=== PATIENT | female | born 2000 | race Caucasian/White ===

== ENCOUNTER 2021-04-04 17:01 | Emergency (ER) | payer OTHER, SELFPAY ==
[2021-04-04 17:09] VITALS: BP 99/49; PULSE 76; RESP 18; TEMP 36.8; O2SAT 98; BMI 45.7
--- NOTE | 2021-04-04 17:50 | ED.SKABFB ---
HPI - Skin/Abscess/Foreign Bdy General Chief complaint: Skin/Abscess/Foreign Body Stated complaint: cyst Time Seen by Provider: 04/04/21 17:30 History of Present Illness HPI narrative: Patient complains of right abdominal abscess, redness and painful swelling for several days similar to prior abscesses, no fever no chills no vomiting no other abdominal pain Related Data Previous Rx's Medication Instructions Recorded doxycycline monohydrate 100 mg PO BID #14 tab 04/04/21 lorazepam [Ativan] 1 mg PO BID PRN #2 tab 04/04/21 Allergies Allergy/AdvReac Type Severity Reaction Status Date / Time No Known Allergies Allergy Unverified 08/11/20 19:01 [No Known Allergies*] Review of Systems Review of Systems: Positive for redness to skin of abdomen in a place where she has had previous abscess Negative no fever no chills no dizziness no weakness no chest pain or shortness of breath no abdominal pain no nausea or vomiting no other rash Yes all other systems are reviewed and are negative PMFSH Past Medical History Source: nursing notes reviewed Medical History (Updated 04/05/21 @ 00:01 by Wes Steiner) Asthma Tourette syndrome Social History Social History Advance Directives: No Advance Directives Information Provided: No Patient : No Physical Exam Vital Signs: Vital Signs: Last Vital Signs Temp 98.2 F 04/04/21 17:09 Pulse 76 04/04/21 17:09 Resp 18 04/04/21 17:09 BP 99/49 L 04/04/21 17:09 Pulse Ox 98 04/04/21 17:09 Body Mass Index 45.7 General appearance no acute distress Head is normocephalic atraumatic Neck is supple Respiratory no distress Abdomen there is a small area of the right abdomen at level of umbilicus that has some mild redness and induration no obvious abscess no obvious fluctuance no discharge, there is no other tenderness in the abdomen except a small superficial mildly tender area of skin, there is no deep tenderness rebound or guarding Extremities full range of motion x4 Neuro no gross motor or sensory deficit Course Course Course Narrative: Patient with abdominal small abscess was advised that we could incise it today and make sure any pus in there got out, she felt too anxious to undergo the procedure despite being given an Ativan and refused the procedure I said that was fine as she had no fever no chills there was no significant surrounding cellulitis, and it ooze not even certain that there is a drainable fluid collection as it was indurated but not obviously fluctuant She is advised that she can return here any time, I gave her a prescription for Ativan and advised that she take it before arrival in the emergency room so she does need the procedure she could tolerate it and she understood to return if it gets more swollen or worse and is discharged with no procedure today Discharge Plan Discharge Clinical Impression: Abscess of skin or subcutaneous tissue Patient Disposition: Home, Self-Care Additional Instructions: You did not want to undergo the incision and drainage of the abscess now so we did not do it Use warm soaks, take the antibiotic as prescribed Return here in 2 days for recheck Usually an abscess will just get bigger and get more uncomfortable, so if that is happening I wrote you for 2 Ativan tablets and you can take 1 of the tablets half an hour before you come in to this department and you will have the other to take if needed in the waiting room if 1 mg does not work You can come in here any time when you are ready for us to drain the abscess It usually gets very busy year in the afternoon to the nighttime so if possible come in the morning Prescriptions: New doxycycline monohydrate 100 mg tablet 100 mg PO BID Qty: 14 RF: 0 lorazepam [Ativan] 1 mg tablet 1 mg PO BID PRN (Reason: anxiety) Qty: 2 RF: 0 Interventions: ED Discharge Assessment Last Done: 04/04/21 18:31 Discharge Date/Time: 04/04/21 18:31
[2021-04-04] MEDS: LORazepam 1 MG TABLET PO (17:54)
[2021-04-04] MEDS: Lidocaine HCl 1 % MPF 5 ML VIAL SUBCUT ×2 (17:54)
== END 2021-04-04 18:31 | disposition home or self-care (01) ==
PROVIDERS: Emergency Provider Internal Medicine; PCP Pediatrics
DX: L02.211 Cutaneous abscess of abdominal wall (principal)
CPT/HCPCS: 96372; 99284

== ENCOUNTER 2022-02-26 14:45 | Emergency (ER) | payer OTHER, SELFPAY ==
--- NOTE | ~2022-02-26 | XR_ITS ---
EXAMINATION: XR CHEST CLINICAL INFORMATION: Cough. Chest pain. COMPARISON: None TECHNIQUE: Frontal view of the chest was obtained. FINDINGS: The lungs are well expanded. There is no focal consolidation, edema, or effusion. No pneumothorax. The cardiomediastinal silhouette is within normal limits. No acute osseous abnormality. XR/XR chest 1V IMPRESSION: Clear lungs.
--- NOTE | 2022-02-26 15:12 | ECG_ITS ---
Test Reason : weakness/sob Blood Pressure : / mmHG Vent. Rate : 130 BPM Atrial Rate : 130 BPM P-R Int : 134 ms QRS Dur : 084 ms QT Int : 292 ms P-R-T Axes : 060 060 027 degrees QTc Int : 429 ms Sinus tachycardia Otherwise normal ECG No previous ECGs available Referred By: Generic ED Physician Electronically Signed By:DARREL GOINS MD
[2022-02-26 16:02] VITALS: BP 118/73; PULSE 128; RESP 22; TEMP 38.7; O2SAT 97; BMI 46.0
[2022-02-26] MEDS: Acetaminophen 325 MG TABLET 650 MG PO (16:09)
--- NOTE | 2022-02-26 18:03 | ED.CHESTPAIN ---
HPI - Chest Pain General Chief Complaint: Chest Pain Stated Complaint: SOB/Chest pain Time Seen by Provider: 02/26/22 17:28 Source: patient Mode of arrival: ambulatory Limitations: no limitations History of Present Illness HPI narrative: Patient is a 21-year-old female with a past medical history of asthma. She presents emergency department for evaluation cough, reproducible chest pain, body, generalized weakness with symptom onset yesterday. She reports that a few days ago she was exposed to somebody who tested positive for influenza. She has been taking her Flovent inhaler daily, ran out of albuterol MDI, and states that yesterday the tubing for her nebulizer machine broke, therefore she has been unable to use it. T-max 102.5 degrees, improves with Tylenol. Chest pain is diffuse reproducible to cough and deep breathing. Related Data Previous Rx's Medication Instructions Recorded doxycycline monohydrate 100 mg 100 mg PO BID #14 tab 04/04/21 tablet lorazepam 1 mg tablet (Ativan) 1 mg PO BID PRN #2 tab 04/04/21 albuterol sulfate 2.5 mg (3 mL) INHALATION Q4-6H PRN 02/26/22 #90 ml albuterol sulfate 90 mcg/actuation 1 inh INHALATION Q4-6H PRN #1 ea 02/26/22 breath activated powder inhaler oseltamivir 75 mg capsule (Tamiflu) 75 mg PO BID 5 Days #10 cap 02/26/22 prednisone 20 mg tablet 40 mg PO DAILY 5 Days #10 tab 02/26/22 Allergies Allergy/AdvReac Type Severity Reaction Status Date / Time rhodes Allergy Hives Verified 02/26/22 16:05 grapefruit Allergy Hives Verified 02/26/22 16:05 latex Allergy Hives Verified 02/26/22 16:05 Penicillins Allergy Hives Verified 02/26/22 16:06 Review of Systems Review of Systems: Constitutional : Positive Fever, No Chills ENT/Mouth : No Hoarseness, No muffled voice, No sore throat, No Rhinorrhea Eyes: No Redness, No Discharge, No Vision Changes Cardiovascular : Positive Chest Pain, positive SOB, positive Dyspnea on Exertion, No Edema Respiratory : positive Cough, No Sputum, No Wheezing, Gastrointestinal : No Nausea, No Vomiting, No Diarrhea, No abdominal Pain Genitourinary : No Dysuria, No Hematuria Musculoskeletal : No joint pain, No Myalgias Skin : No rash Neuro : No Weakness, No Numbness, No Headache Psych : No anxiety, depression Heme/Lymph: No Bruising, No Bleeding Yes all other systems are reviewed and are negative [facility] Past Medical History Attestation statement: The following information was validated with the patient. Source: old records reviewed Medical History Asthma Tourette syndrome Social History Social History Advance Directives: No Advance Directives Information Provided: No Patient : No Physical Exam Vital Signs: Vital Signs: Last Vital Signs Temp 98.7 F 02/26/22 18:26 Pulse 110 H 02/26/22 18:04 Resp 18 02/26/22 18:04 BP 125/83 02/26/22 18:04 Pulse Ox 96 02/26/22 18:04 BMI result Body Mass Index 46.0 Vital signs have been reviewed and appeared to be correct. Blood pressure normal.? Tachycardia.? Mild tachypnea. Febrile.? Oxygen saturation normal. Appearance: Alert.?Oriented to person, place and time. No acute distress.?Normal affect. Eyes: Pupils equal, round and reactive to light.? ENT: Pharynx normal.?? Neck: Normal inspection.? Neck supple.?? CVS: Heart sounds normal. Tachycardia.? Pulses normal.?? Respiratory: No respiratory distress.? Lung sounds tight bilaterally, no wheezing.?? Abdomen: Soft and non-tender. Normoactive bowel sounds. ? Skin: Skin warm and dry.? Normal skin color.? Normal skin turgor.?? Extremities: No lower extremity edema.? No calf ttp? Neuro: Moves all extremities spontaneously. Sensation intact bilaterally. CN II-XII intact. No focal neuro deficits. Ambulates with normal steady gait. Course Course Course Narrative: Patient is a 21-year-old female being evaluated for fever, shortness of breath, chest pain, cough after recent contact with influenza positive person. Patient initially meeting SIRS criteria; tachycardic with mild tachypnea and febrile, though I suspect that this is secondary to viral infection given recent exposure, do not suspect bacterial infection/sepsis at this time. After Tylenol heart rate improved to 110, afebrile at 98.7, no tachypnea. COVID-19 testing is negative, influenza A testing is positive. Wells score for PE 1.5, low risk for PE, only risk being obese. Chest x-ray is normal. Not consistent with pneumonia, AAA, aortic dissection, myocardial infarction as no risk factors. Symptoms are most consistent with influenza A viral infection, likely causing exacerbation of her asthma. Reports improvement with her symptoms after receiving oral prednisone and albuterol inhaler. She is overall appearing, speaking in clear full sentences, maintaining airway, managing secretions, no significant work of breathing. Discussed plan of care for discharge home, patient is agreeable, discussed reasons to return back to the emergency department, provide new prescription for prednisone, Tamiflu, albuterol inhaler and nebulizer solution. MDM - Chest Pain Medical Records Data Attestation: I reviewed the patient's medical records. Lab Data Attestation: I reviewed the patient's lab results. Labs: Lab Results 02/26/22 02/26/22 Range/Units 18:07 18:07 COVID-19 ([facility]) Negative (Negative) COVID-19 Clin Com See Note Influenza Type A ([facility]) Positive A (Negative) Influenza Type B ([facility]) Negative (Negative) Influenza A & B Note See Note Imaging Data Chest x-ray: Radiologist's impression: FINDINGS: The lungs are well expanded. There is no focal consolidation, edema, or effusion. No pneumothorax. The cardiomediastinal silhouette is within normal limits. No acute osseous abnormality. XR/XR chest 1V IMPRESSION: Clear lungs. ECG Data ECG #1: Attestation: I personally reviewed and interpreted this ECG as follows: ECG interpretation date: 02/26/22 ECG interpretation time: 18:00 Prior ECG tracings: not available for review Interpretation: Rate: 130 Rhythm:? Sinus tachycardia [place]:? Normal Normal P waves.? Normal SAM.?? Normal QRS complex.?? ST T wave :? No ST elevation, no ST depression, no T-wave inversion qTC: 429 prior studies:? None available for review The study has been interpreted contemporaneously by me. Discharge Plan Discharge Clinical Impression: Asthma exacerbation, Influenza A Patient Disposition: Home, Self-Care Instructions: Asthma (ED), Influenza (ED) Additional Instructions: Testing for flu is positive, please take Tamiflu twice daily for 5 days and prednisone once daily starting tomorrow for 5 days. Albuterol as needed for shortness of breath, cough, wheezing. Please return to emergency department any new or worsening symptoms or concerns. Please contact your primary care provider to schedule a follow-up visit within 5 days. Prescriptions: New prednisone 20 mg tablet 40 mg PO DAILY 5 Days Qty: 10 0RF albuterol sulfate 90 mcg/actuation aerosol powdr breath activated 1 inh inhalation Q4-6H PRN (Reason: shortness of breath or wheezing) Qty: 1 0RF albuterol sulfate 2.5 mg /3 mL (0.083 %) solution for nebulization 2.5 mg inhalation Q4-6H PRN (Reason: shortness of breath or wheezing) Qty: 90 0RF oseltamivir [Tamiflu] 75 mg capsule 75 mg PO BID 5 Days Qty: 10 0RF No Action doxycycline monohydrate 100 mg tablet 100 mg PO BID Qty: 14 0RF lorazepam [Ativan] 1 mg tablet 1 mg PO BID PRN (Reason: anxiety) Qty: 2 0RF Rx Instructions: Take 1 tablet an hour before coming to the hospital for your procedure to reduce anxiety
[2022-02-26 18:04] VITALS: BP 125/83; PULSE 110; RESP 18; O2SAT 96
[2022-02-26 18:26] VITALS: TEMP 37.1
[2022-02-26 18:28] LABS: COVID-19 Test Negative (Negative); IDNOW Serial# 16C4AD1C
[2022-02-26] MEDS: predniSONE 20 MG TABLET 60 MG PO (18:29)
[2022-02-26 18:35] LABS: Influenza A Positive (Negative); Influenza B2 Negative (Negative)
[2022-02-26] MEDS: Albuterol Sulfate 90 MCG 8 GM INHALER 4 PUFF INHALE (18:49)
--- NOTE | 2022-02-26 18:54 | PC.NURSE ---
albuterol inhaler done as ordered . educated patient on proper administration , take slow deep breath while doser is pushed down . completed 4 puffs . lung quality improved .
== END 2022-02-26 19:06 | disposition home or self-care (01) ==
PROVIDERS: Nurse Practitioner Family; Emergency Provider Emergency Medicine; PCP Pediatrics
DX: J11.1 Influenza due to unidentified influenza virus with other respiratory manifestations (principal); Z20.822 Contact with and (suspected) exposure to COVID-19; R06.02 Shortness of breath; R50.9 Fever, unspecified
CPT/HCPCS: 71045; 87502; 87635; 93005; 99284

== ENCOUNTER 2022-12-19 09:20 | Outpatient (RCR) | payer OTHER, SELFPAY | END 2022-12-19 23:59 | disposition home or self-care (01) | LOC: HO.PHPA 09:20 | PROVIDERS: Visit Provider Psychiatry & Neurology Psychiatry | DX: F31.9 Bipolar disorder, unspecified (principal) ==

== ENCOUNTER 2022-12-28 19:58 | Emergency (ER) | payer OTHER, SELFPAY ==
--- NOTE | ~2022-12-28 | XR_ITS ---
EXAMINATION: XR CHEST CLINICAL INFORMATION: Cough, shortness of breath COMPARISON: Chest x-ray on 02/26/2022 TECHNIQUE: 2 views of the chest were obtained. FINDINGS: No significant abnormality is noted involving the heart, lungs, mediastinum, bony thorax or soft tissues. XR/XR chest 2V IMPRESSION: Unremarkable examination.
[2022-12-28 19:59] VITALS: BP 122/70; PULSE 95; RESP 20; TEMP 36.2; O2SAT 98; BMI 44.4
--- NOTE | 2022-12-28 20:01 | ED.GENADULT ---
HPI - General Adult General Chief complaint: Asthma <AMANDA Sorensen - Last Filed: 12/28/22 20:02> Stated complaint: Asthma/Chest pain <AMANDA Sorensen - Last Filed: 12/28/22 20:02> Time Seen by Provider: 12/28/22 20:46 <AMANDA Sorensen - Last Filed: 12/28/22 20:02> Source: patient <Zoey Valerio MD - Last Filed: 12/28/22 21:42> Mode of arrival: ambulatory <Zoey Valerio MD - Last Filed: 12/28/22 21:42> History of Present Illness HPI narrative: 22-year-old female with history of asthma states over the past couple of days she has had increasing shortness of breath and does endorse that she smokes marijuana within the past 24 hours. She states her at home breathing treatments have not been working and that she has run out of medication. She denies any fevers or chills. <Zoey Valerio MD - Last Filed: 12/28/22 21:42> Related Data Home medications: Previous Rx's Medication Instructions Recorded doxycycline monohydrate 100 mg 100 mg PO BID #14 tabs 04/04/21 tablet lorazepam 1 mg tablet (Ativan) 1 mg PO BID PRN anxiety #2 tabs 04/04/21 albuterol sulfate 2.5 mg/3 mL 2.5 mg (3 mL) inhalation Q4-6H PRN 02/26/22 (0.083 %) solution for nebulization shortness of breath or wheezing #90 mL albuterol sulfate 90 mcg/actuation 1 inh inhalation Q4-6H PRN 02/26/22 breath activated powder inhaler shortness of breath or wheezing #1 ea oseltamivir 75 mg capsule (Tamiflu) 75 mg PO BID 5 days #10 caps 02/26/22 prednisone 20 mg tablet 40 mg PO DAILY 5 days #10 tabs 02/26/22 albuterol sulfate 90 mcg/actuation 2 puff inhalation Q4-6H PRN 12/28/22 aerosol inhaler (Ventolin HFA) shortness of breath or wheezing #8.5 grams prednisone 50 mg tablet 50 mg PO DAILY 4 days #4 tabs 12/28/22 <AMANDA Sorensen - Last Filed: 12/28/22 20:02> Allergies/adverse reactions: Allergies Allergy/AdvReac Type Severity Reaction Status Date / Time rhodes Allergy Hives Verified 12/28/22 20:03 grapefruit Allergy Hives Verified 12/28/22 20:03 latex Allergy Hives Verified 12/28/22 20:03 Penicillins Allergy Hives Verified 12/28/22 20:03 <AMANDA Sorensen - Last Filed: 12/28/22 20:02> Review of Systems Review of Systems: Pertinent positives and negatives as stated in HPI <Zoey Valerio MD - Last Filed: 12/28/22 21:42> PMFSH Past Medical History Source: nursing notes reviewed <Zoey Valerio MD - Last Filed: 12/28/22 21:42> Medical History: Medical History Asthma Tourette syndrome <AMANDA Sorensen - Last Filed: 12/28/22 20:02> Social History Social History: Social History Advance Directives: No Advance Directives Information Provided: No <AMANDA Sorensen - Last Filed: 12/28/22 20:02> Physical Exam ED Vital Signs: Vital Signs - 24 hr 12/28/22 19:59 12/28/22 21:16 Temperature 97.1 F Pulse Rate 95 88 Respiratory Rate 20 16 Blood Pressure 122/70 Pulse Oximetry 98 Oxygen Delivery Method Room Air BMI result Body Mass Index 44.4 <AMANDA Sorensen - Last Filed: 12/28/22 20:02> Vital Signs - 24 hr 12/28/22 19:59 12/28/22 21:16 Temperature 97.1 F Pulse Rate 95 88 Respiratory Rate 20 16 Blood Pressure 122/70 Pulse Oximetry 98 Oxygen Delivery Method Room Air BMI result Body Mass Index 44.4 VITAL SIGNS: Reviewed. GENERAL: Well developed, well nourished, in no acute distress. HEAD: Normocephalic/atraumatic EYES: PERRLA, EOMI LUNGS: Good inspiratory effort with expiratory wheeze minimally decreased bilaterally, mild tachypnea. SpO2<98> CARDIOVASCULAR: Regular rate and rhythm without noted murmurs ABDOMEN: Soft, non-tender, non-distended with bowel sounds. MUSCULOSKELETAL: No tenderness, deformities, or effusions noted on gross inspection. EXTREMITIES: No cyanosis, clubbing or edema. SKIN: Inspection of the skin reveals no rashes NEUROLOGIC: Alert and oriented x 4. Strength and sensation to light touch were grossly intact x 4. <Zoey Valerio MD - Last Filed: 12/28/22 21:42> Course Course Course Narrative: RME performed by Myriam Rodriguez PA-C. Patient is a 22 year old female presenting to the emergency department with an acute asthma exacerbation. Patient states that she has been using her nebulizer at home and it is no longer working. Patient states that she does not know the last time she was on steroids. Labs, CXR ordered. Patient placed back in the waiting room pending room availability and results. <AMANDA Sorensen - Last Filed: 12/28/22 20:02> Medications Administered Discontinued Medications Generic Name Dose Route Start Last Admin Trade Name Freq PRN Reason Stop Dose Admin Albuterol Sulfate 10 mg 12/28/22 21:00 12/28/22 21:14 Albuterol Sulfate (0.083%) 2.5 Mg/3 Ml Vial.Neb INHALE 12/28/22 21:01 10 mg ONCE ONE Administration <AMANDA Sorensen - Last Filed: 12/28/22 20:02> Medications Administered Discontinued Medications Generic Name Dose Route Start Last Admin Trade Name Freq PRN Reason Stop Dose Admin Albuterol Sulfate 10 mg 12/28/22 21:00 12/28/22 21:14 Albuterol Sulfate (0.083%) 2.5 Mg/3 Ml Vial.Neb INHALE 12/28/22 21:01 10 mg ONCE ONE Administration <Zoey Valerio MD - Last Filed: 12/28/22 21:42> Medical Decision Making Medical Decision Making MDM Narrative: 22-year-old female, afebrile and not tachycardic, neither she hypoxic, most consistent with mild asthma exacerbation will receive albuterol, 50 mg of prednisone, chest x-ray and re-evaluation. I reviewed all investigations and mitral petition is that patient has mild asthma exacerbation and the leukocytosis that is noted is likely secondary to stress/reactive response as patient is afebrile and chest x-ray is negative for any pneumonia. Patient given diagnosis and results and is feeling much better and will be discharged home in stable condition. <Zoey Valerio MD - Last Filed: 12/28/22 21:42> Differential Diagnosis Differential Diagnoses: The differential diagnosis associated with the presentation includes <Zoey Valerio MD - Last Filed: 12/28/22 21:42> Please see the discussion above <Zoey Valerio MD - Last Filed: 12/28/22 21:42> Lab Data MDM Lab Attestation statement: I reviewed the patient's lab results. <Zoey Valerio MD - Last Filed: 12/28/22 21:42> Please see the discussion above <Zoey Valerio MD - Last Filed: 12/28/22 21:42> Result Diagrams: 12/28/22 20:40 12/28/22 20:40 <AMANDA Sorensen - Last Filed: 12/28/22 20:02> Labs: Lab Results 12/28/22 12/28/22 Range/Units 20:40 20:40 WBC 15.8 H (4.8-10.8) X10*3/uL RBC 5.18 (4.20-5.50) X10*6/uL Hgb 13.9 (12.0-16.0) g/dl Hct 42.7 (37.0-47.0) % MCV 82.4 (80.0-98.0) fL MCH 26.8 L (27.0-33.0) pg MCHC 32.6 (31.0-35.0) g/dl RDW 15.2 (11.0-16.0) % Plt Count 281 (160-400) X10*3/uL MPV 10.9 (9.4-12.3) fL Immature Gran % (Auto) 0.4 (0.0-0.4) % Neut % (Auto) 73.1 H (45-73) % Lymph % (Auto) 15.5 L (20-40) % [place] % (Auto) 5.5 (2-11) % Eos % (Auto) 5.1 H (0-4) % Baso % (Auto) 0.4 (0-2) % Lymph # (Auto) 2.5 (1.2-4.9) X10*3/uL [place] # (Auto) 0.9 (0.1-1.2) X10*3/uL Eos # (Auto) 0.8 H (0.0-0.4) X10*3/uL Baso # (Auto) 0.1 (0.0-0.2) X10*3/uL Abs Immat Gran (auto) 0.07 H (0.00-0.03) X10*3/uL Absolute Neuts (auto) 11.6 H (2.0-8.3) x10*3/uL Absolute Nucleated RBC 0.000 (0.0-0.012) X10*3/uL Nucleated RBC % (auto) 0.0 (0.0-0.2) /100WBC Sodium 139 (135-145) mmol/L Potassium 4.2 (3.3-5.1) mmol/L Chloride 104 (96-108) mmol/L Carbon Dioxide 24 (22-29) mmol/L Anion Gap 15 (12-20) BUN 9 (9-16) mg/dL Creatinine 0.92 (0.5-1.4) mg/dL Estim Creat Clear Calc 108.9 Estimated GFR > 60 Random Glucose 119 H (60-115) mg/dL Calcium 9.2 (8.4-10.2) mg/dL Magnesium 2.0 (1.6-2.6) mg/dL Total Bilirubin 0.4 (0.0-1.0) mg/dL AST 17 (5-31) U/L ALT 13 (0-31) U/L Alkaline Phosphatase 86 (39-117) U/L Total Protein 7.6 (6.5-8.0) g/dL Albumin 3.9 (3.5-5.0) g/dL <AMANDA Sorensen - Last Filed: 12/28/22 20:02> Lab Results 12/28/22 12/28/22 Range/Units 20:40 20:40 WBC 15.8 H (4.8-10.8) X10*3/uL RBC 5.18 (4.20-5.50) X10*6/uL Hgb 13.9 (12.0-16.0) g/dl Hct 42.7 (37.0-47.0) % MCV 82.4 (80.0-98.0) fL MCH 26.8 L (27.0-33.0) pg MCHC 32.6 (31.0-35.0) g/dl RDW 15.2 (11.0-16.0) % Plt Count 281 (160-400) X10*3/uL MPV 10.9 (9.4-12.3) fL Immature Gran % (Auto) 0.4 (0.0-0.4) % Neut % (Auto) 73.1 H (45-73) % Lymph % (Auto) 15.5 L (20-40) % [place] % (Auto) 5.5 (2-11) % Eos % (Auto) 5.1 H (0-4) % Baso % (Auto) 0.4 (0-2) % Lymph # (Auto) 2.5 (1.2-4.9) X10*3/uL [place] # (Auto) 0.9 (0.1-1.2) X10*3/uL Eos # (Auto) 0.8 H (0.0-0.4) X10*3/uL Baso # (Auto) 0.1 (0.0-0.2) X10*3/uL Abs Immat Gran (auto) 0.07 H (0.00-0.03) X10*3/uL Absolute Neuts (auto) 11.6 H (2.0-8.3) x10*3/uL Absolute Nucleated RBC 0.000 (0.0-0.012) X10*3/uL Nucleated RBC % (auto) 0.0 (0.0-0.2) /100WBC Sodium 139 (135-145) mmol/L Potassium 4.2 (3.3-5.1) mmol/L Chloride 104 (96-108) mmol/L Carbon Dioxide 24 (22-29) mmol/L Anion Gap 15 (12-20) BUN 9 (9-16) mg/dL Creatinine 0.92 (0.5-1.4) mg/dL Estim Creat Clear Calc 108.9 Estimated GFR > 60 Random Glucose 119 H (60-115) mg/dL Calcium 9.2 (8.4-10.2) mg/dL Magnesium 2.0 (1.6-2.6) mg/dL Total Bilirubin 0.4 (0.0-1.0) mg/dL AST 17 (5-31) U/L ALT 13 (0-31) U/L Alkaline Phosphatase 86 (39-117) U/L Total Protein 7.6 (6.5-8.0) g/dL Albumin 3.9 (3.5-5.0) g/dL <Zoey Valerio MD - Last Filed: 12/28/22 21:42> Independent Interpretation I performed an independent interpretation of an: EKG <Zoey Valerio MD - Last Filed: 12/28/22 21:42> Interpretation: Normal sinus rhythm, HR-92, no STEMI, [place]/QRS/QTC is within normal limits. <Zoey Valerio MD - Last Filed: 12/28/22 21:42> Radiology Impression Radiologist Impression: My interpretation is in agreement with radiology's impression of the imaging study. <Zoey Valerio MD - Last Filed: 12/28/22 21:42> Discharge Plan Discharge Clinical Impression: Asthma with acute exacerbation <AMANDA Sorensen - Last Filed: 12/28/22 20:02> Patient Disposition: Home, Self-Care <AMANDA Sorensen - Last Filed: 12/28/22 20:02> Instructions: Asthma (ED) <AMANDA Sorensen - Last Filed: 12/28/22 20:02> Additional Instructions: 1. Resume all home medications as prescribed. <AMANDA Sorensen - Last Filed: 12/28/22 20:02> Prescriptions: New albuterol sulfate [Ventolin HFA] 90 mcg/actuation HFA aerosol inhaler 2 puff inhalation Q4-6H PRN (Reason: shortness of breath or wheezing) Qty: 8.5 1RF prednisone 50 mg tablet 50 mg PO DAILY 4 Days Qty: 4 0RF No Action doxycycline monohydrate 100 mg tablet 100 mg PO BID Qty: 14 0RF lorazepam [Ativan] 1 mg tablet 1 mg PO BID PRN (Reason: anxiety) Qty: 2 0RF Rx Instructions: Take 1 tablet an hour before coming to the hospital for your procedure to reduce anxiety prednisone 20 mg tablet 40 mg PO DAILY 5 Days Qty: 10 0RF albuterol sulfate 90 mcg/actuation aerosol powdr breath activated 1 inh inhalation Q4-6H PRN (Reason: shortness of breath or wheezing) Qty: 1 0RF albuterol sulfate 2.5 mg /3 mL (0.083 %) solution for nebulization 2.5 mg inhalation Q4-6H PRN (Reason: shortness of breath or wheezing) Qty: 90 0RF oseltamivir [Tamiflu] 75 mg capsule 75 mg PO BID 5 Days Qty: 10 0RF <AMANDA Sorensen - Last Filed: 12/28/22 20:02>
--- NOTE | 2022-12-28 20:02 | ECG_ITS ---
Test Reason : SOB/CP Blood Pressure : / mmHG Vent. Rate : 092 BPM Atrial Rate : 092 BPM P-R Int : 146 ms QRS Dur : 086 ms QT Int : 328 ms P-R-T Axes : 046 059 032 degrees QTc Int : 405 ms Normal sinus rhythm Normal ECG When compared with ECG of 26-FEB-2022 15:22, No significant change was found Referred By: Myriam Rodriguez Electronically Signed By:King Correia
[2022-12-28 20:43] LABS: MANUAL DIFF FLAG NO
[2022-12-28 20:45] LABS: Basophils Absolute Auto 0.1 X10*3/uL (0.0-0.2); Basophils Percent Auto 0.4 % (0-2); Eosinophils Absolute Auto 0.8 X10*3/uL (0.0-0.4); Eosinophils Percent Auto 5.1 % (0-4); Hematocrit 42.7 % (37.0-47.0); Hemoglobin 13.9 g/dl (12.0-16.0); Imm Gran Abs Auto 0.07 X10*3/uL (0.00-0.03); Imm Gran Pct Auto 0.4 % (0.0-0.4); Lymphocytes Absolute Auto 2.5 X10*3/uL (1.2-4.9); Lymphocytes Percent Auto 15.5 % (20-40); Mean Corpuscular HGB Conc 32.6 g/dl (31.0-35.0); Mean Corpuscular Hemoglobin 26.8 pg (27.0-33.0); Mean Corpuscular Volume 82.4 fL (80.0-98.0); Mean Platelet Volume 10.9 fL (9.4-12.3); Monocytes Absolute Auto 0.9 X10*3/uL (0.1-1.2); Monocytes Percent Auto 5.5 % (2-11); Neutrophils Absolute Auto 11.6 x10*3/uL (2.0-8.3); Neutrophils Percent Auto 73.1 % (45-73); Platelet Count 281 X10*3/uL (160-400); Red Blood Count 5.18 X10*6/uL (4.20-5.50); Red Cell Distribution Width 15.2 % (11.0-16.0); White Blood Count 15.8 X10*3/uL (4.8-10.8)
[2022-12-28 21:02] LABS: Alanine Aminotransferase 13 U/L (0-31); Albumin Level 3.9 g/dL (3.5-5.0); Alkaline Phosphatase 86 U/L (39-117); Anion Gap 15 (12-20); Aspartate Amino Transferase 17 U/L (5-31); Bilirubin Total 0.4 mg/dL (0.0-1.0); Blood Urea Nitrogen 9 mg/dL (9-16); Calcium 9.2 mg/dL (8.4-10.2); Carbon Dioxide 24 mmol/L (22-29); Chloride 104 mmol/L (96-108); Creatinine Clr Calc Pharmacy 108.9; Estimated Glomerular Filt Rate > 60; Glucose Random 119 mg/dL (60-115); Potassium 4.2 mmol/L (3.3-5.1); Sodium 139 mmol/L (135-145); Total Protein 7.6 g/dL (6.5-8.0)
[2022-12-28] MEDS: Albuterol Sulfate (0.083%) 2.5 MG/3 ML VIAL.NEB 10 MG INHALE (21:14)
[2022-12-28 21:16] VITALS: PULSE 88; RESP 16; O2SAT 98
[2022-12-28] MEDS: Albuterol Sulfate 90 MCG 8 GM INHALER 4 PUFF INHALE (22:01)
[2022-12-28] MEDS: predniSONE 10 MG TABLET 50 MG PO (22:02)
--- NOTE | 2022-12-28 22:03 | PC.NURSE ---
pt reporting improvement in breathing after treatments, medicated per provider order.
== END 2022-12-28 22:05 | disposition home or self-care (01) ==
PROVIDERS: Physician Assistant Medical; Emergency Provider Student in an Organized Health Care Education/Training Program
DX: J45.901 Unspecified asthma with (acute) exacerbation (principal); R06.02 Shortness of breath; R50.9 Fever, unspecified; F12.90 Cannabis use, unspecified, uncomplicated; Z79.899 Other long term (current) drug therapy
CPT/HCPCS: 36415; 71046; 80053; 83735; 85025; 93005; 94640; 99284

== ENCOUNTER 2023-02-05 15:27 | Emergency (ER) | payer OTHER, SELFPAY ==
--- NOTE | ~2023-02-05 | XR_ITS ---
EXAMINATION: XR CHEST CLINICAL INFORMATION: Short of breath. Chest pain. COMPARISON: 01/07/2013 TECHNIQUE: Frontal view of the chest was obtained. FINDINGS: The lungs are well expanded. There is no focal consolidation, edema, or effusion. No pneumothorax. The cardiomediastinal silhouette is within normal limits. No acute osseous abnormality. XR/XR chest 1V IMPRESSION: Clear lungs.
[2023-02-05 15:50] VITALS: BP 129/77; PULSE 87; RESP 20; TEMP 36.9; O2SAT 98; BMI 47.7
--- NOTE | 2023-02-05 15:52 | ED_ITS ---
HPI - General Adult General Chief complaint: Upper Respiratory Symptoms <AMANDA Romero - Last Filed: 02/05/23 15:57> Stated complaint: Diff Breathing/ Chest Pressure/ Cough <AMANDA Romero - Last Filed: 02/05/23 15:57> Time Seen by Provider: 02/05/23 17:34 <AMANDA Romero - Last Filed: 02/05/23 15:57> Source: patient <AMANDA Orta - Last Filed: 02/05/23 19:06> Mode of arrival: ambulatory <AMANDA Orta - Last Filed: 02/05/23 19:06> Limitations: no limitations <AMANDA Orta Last Filed: 02/05/23 19:06> History of Present Illness HPI narrative: Patient is a 22-year-old female with a history of asthma cc cough and wheezing since Saturday evening. She also has associated chest tightness, SOB, hot/cold feeling, shakiness. She went to a routine PCP appointment on Saturday and was not having any symptoms. Later on in the evening, she started having some chest tightness and started coughing and wheezing on Saturday. Yesterday she was coughing so much she could not get out of bed and was vomiting and some some blood in her mucus, more than she has in the past and was concerned. She has been in a fighting intermittent illness for the past 6 months with short courses of steroids. She was seen here at one point recently and was prescribed 3 days of steroids and her symptoms had not fully resolved so she went to urgent care and was given a 7 day course and her symptoms had resolved until this past Saturday. Pt is morbidly obese and states she had a sleep study when she was younger but it unaware of the findings and never was on CPAP. She also has intermittent GERD and was recently prescribed omeprazole. She has not yet completed the 2-week trial. She states she has abdominal cramping today but is on her period. She denies measured fever, loc, diarrhea, or recent antibiotic use. <AMANDA Orta Last Filed: 02/05/23 19:06> Onset (ago): day(s) (5) <AMANDA Orta Last Filed: 02/05/23 19:06> Related Data Home medications: Previous Rx's Medication Instructions Recorded doxycycline monohydrate 100 mg 100 mg PO BID #14 tabs 04/04/21 tablet lorazepam 1 mg tablet (Ativan) 1 mg PO BID PRN anxiety #2 tabs 04/04/21 albuterol sulfate 2.5 mg/3 mL 2.5 mg (3 mL) inhalation Q4-6H PRN 02/26/22 (0.083 %) solution for nebulization shortness of breath or wheezing #90 mL albuterol sulfate 90 mcg/actuation 1 inh inhalation Q4-6H PRN 02/26/22 breath activated powder inhaler shortness of breath or wheezing #1 ea oseltamivir 75 mg capsule (Tamiflu) 75 mg PO BID 5 days #10 caps 02/26/22 prednisone 20 mg tablet 40 mg PO DAILY 5 days #10 tabs 02/26/22 albuterol sulfate 90 mcg/actuation 2 puff inhalation Q4-6H PRN 12/28/22 aerosol inhaler (Ventolin HFA) shortness of breath or wheezing #8.5 grams prednisone 50 mg tablet 50 mg PO DAILY 4 days #4 tabs 12/28/22 albuterol sulfate 0.63 mg/3 mL 0.63 mg (3 mL) inhalation QID PRN 02/05/23 solution for nebulization shortness of breath or wheezing #75 mL albuterol sulfate 90 mcg/actuation 1 inh inhalation QID PRN shortness 02/05/23 aerosol inhaler of breath or wheezing #8.5 grams azithromycin 250 mg tablet See Rx Instructions PO .COMPLEX #6 02/05/23 tabs codeine 10 mg-guaifenesin 100 mg/5 5 ml PO Q6H PRN cold symptoms #120 02/05/23 mL oral liquid (Guaifenesin AC) mL prednisone 20 mg tablet 40 mg PO DAILY inflammation 5 days 02/05/23 #10 tabs <AMANDA Romero - Last Filed: 02/05/23 15:57> Allergies/adverse reactions: Allergies Allergy/AdvReac Type Severity Reaction Status Date / Time rhodes Allergy Hives Verified 12/28/22 20:03 grapefruit Allergy Hives Verified 12/28/22 20:03 latex Allergy Hives Verified 12/28/22 20:03 Penicillins Allergy Hives Verified 12/28/22 20:03 <AMANDA Romero - Last Filed: 02/05/23 15:57> Review of Systems Review of Systems: Constitutional : denies med noncompliance, no history of PE or DVT, denies recent travel, No Fever, No Chills ENT/Mouth : No Hoarseness, No sore throat, No Rhinorrhea, No Nasal congestion, No Sinus Pressure, No Ear Pain, No stridor, Eyes: No Redness, No Discharge, No Vision Changes Cardiovascular : No Chest Pain, No SOB, No Dyspnea on Exertion, No Edema, no pleurisy, Respiratory : + Cough, + wheezing, + Sputum, + hemoptysis, no stridor Gastrointestinal : + vomiting related to coughing, No Nausea, No Diarrhea, No abdominal pain except intermittent menstrual cramps Genitourinary : No Dysuria, No Hematuria Musculoskeletal : No joint pain/swelling, No Myalgias Extremities: no extremity swelling /pain Skin : No rash, no itching, no swelling Neuro : No Weakness, No Numbness, No Headache, No Dizziness, No Paresthesias Psych : No anxiety, depression Heme/Lymph: No Bruising, No Bleeding Endocrine : No Polyuria, No Polydipsia <AMANDA Orta - Last Filed: 02/05/23 19:06> Yes all other systems are reviewed and are negative <AMANDA Orta - Last Filed: 02/05/23 19:06> [facility] Past Medical History Attestation statement: The following information was validated with the patient. <AMANDA Orta - Last Filed: 02/05/23 19:06> Source: old records reviewed and nursing notes reviewed <AMANDA Orta - Last Filed: 02/05/23 19:06> Medical History: Medical History (Updated 02/05/23 @ 18:59 by AMANDA Orta) Asthma Tourette syndrome <AMANDA Romero - Last Filed: 02/05/23 15:57> Social History Social History: Social History Advance Directives: No Advance Directives Information Provided: Yes <AMANDA Romero Last Filed: 02/05/23 15:57> Physical Exam ED Vital Signs: Vital Signs - 24 hr 02/05/23 15:50 02/05/23 17:41 02/05/23 18:21 Temperature 98.4 F Pulse Rate 87 83 91 Respiratory Rate 20 18 20 Blood Pressure 129/77 Pulse Oximetry 98 Oxygen Delivery Method Room Air 02/05/23 18:31 Temperature Pulse Rate 98 Respiratory Rate 20 Blood Pressure Pulse Oximetry 100 Oxygen Delivery Method Room Air BMI result Body Mass Index 47.7 <AMANDA Romero - Last Filed: 02/05/23 15:57> Vital Signs - 24 hr 02/05/23 15:50 02/05/23 17:41 02/05/23 18:21 Temperature 98.4 F Pulse Rate 87 83 91 Respiratory Rate 20 18 20 Blood Pressure 129/77 Pulse Oximetry 98 Oxygen Delivery Method Room Air 02/05/23 18:31 Temperature Pulse Rate 98 Respiratory Rate 20 Blood Pressure Pulse Oximetry 100 Oxygen Delivery Method Room Air BMI result Body Mass Index 47.7 vital signs have been reviewed as normal and appeared to be correct. Blood pressure normal. Heart rate normal. Respiration rate normal. Temperature normal. Oxygen saturation normal. <AMANDA Orta - Last Filed: 02/05/23 19:06> Appearance: Alert. Oriented X3. No acute distress. Head: Normal external exam. Normocephalic. Atraumatic. No Dia signs noted. No raccoon eyes noted Eyes: PERRLA. EOMI. Conjunctiva and sclera normal. Eyelids normal. ENT: EAC normal. TM's Normal. No septal hematoma noted. No hemotympanum noted. Pharynx normal. Uvula midline. Moist mucous membranes. No lesions/ulcerations or masses noted on the tongue. Normal voice. No trismus noted. No drooling noted. No muffled voice noted. Neck: Normal inspection. Neck supple. FROM. No adenopathy. Thyroid Normal. No tracheal deviation noted. No crepitus is noted. No meningeal signs. No neck mass noted. No signs of trauma noted. CVS: Normal heart rate and rhythm. Heart sound normal. Pulses normal throughout. No murmurs/rales/gallops. Respiratory: Decreased air movement noted with diffuse wheezing. Painful inspiration. No rales/rhonchi noted. Chest tenderness to palpation. No crepitus is noted. No signs of trauma noted. No accessory muscle usage noted. No signs of trauma. Abdomen: Soft and nontender. Bowel sounds normal in all 4 quadrants. No distention noted. No organomegaly noted. No visible injury noted. Back: No CVA tenderness. Full range of motion noted. Nontender. No signs of trauma. Patient neuro intact bilaterally and distally on all 4 extremities. Patient's reflexes intact bilaterally and distally on all 4 extremities. No rashes/lesion/induration/fluctuance or signs of infection noted. Skin: Skin warm and dry. Normal skin color. Normal skin turgor. No rashes/lesions/lacerations noted. Extremities: No lower extremity edema. No calf tenderness is noted. Extremities exhibit normal range of motion and nontender. Neuro: Oriented X 3. No motor deficit. No sensory deficit. Reflexes normal. Normal steady gait. No focal neuro deficits noted. CN's II-XII intact bilaterally? Vascular: + radial pulses/+ 2 distal pedal pulses/+2 dorsalis pedis b/l. Normal cap refill. No cyanosis noted to upper extremity nails and lower extremity toes nails. <AMANDA Orta - Last Filed: 02/05/23 19:06> Course Course Course Narrative: RME--22yo F w/PMHx asthma and Tourette c/o productive cough, chest pain, SOB, wheezing times months. Has been using neb and inhalers at home without relief. Admits recently finished steroids 2 weeks ago Satting 98% on room air, diffuse expiratory wheeze and decreased lung sounds noted EKG, labs, CXR, COVID/flu, albuterol neb ordered <AMANDA Romero - Last Filed: 02/05/23 15:57> Reevaluation(s) Reevaluation #1: Labs return patient leukocytosis of 17,000 may be related to the steroid usage, otherwise all other labs are within normal limits. Chest x-ray within normal limits no acute processes noted. COVID and influenza negative. Patient most likely bronchitis with acute asthma exacerbation. Patient reports she feels much better after the breathing treatment and the IM steroids. Will DC home with azithromycin antibiotic, Robitussin with codeine for her chest wall pain when she is coughing, albuterol inhaler, albuterol for her nebulizer and prednisone and instructions to follow-up with PCP and to return if any new or worsening symptoms. Patient understands agrees with this plan. <AMANDA Orta - Last Filed: 02/05/23 19:06> Time: 19:00 <AMANDA Orta - Last Filed: 02/05/23 19:06> Medications Administered Discontinued Medications Generic Name Dose Route Start Last Admin Trade Name Freq PRN Reason Stop Dose Admin Albuterol Sulfate 2.5 mg 02/05/23 15:55 02/05/23 17:38 Albuterol Sulfate (0.083%) 2.5 Mg/3 Ml Vial.Neb INHALE 02/05/23 15:56 2.5 mg ONCE ONE Administration Albuterol Sulfate 2 puff 02/05/23 18:03 02/05/23 18:14 Albuterol Sulfate 90 Mcg 8 Gm Inhaler INHALE 02/05/23 18:04 2 puff ONCE ONE Administration Albuterol Sulfate 5 mg 02/05/23 18:03 02/05/23 18:14 Albuterol Sulfate (0.083%) 2.5 Mg/3 Ml Vial.Neb INHALE 02/05/23 18:04 5 mg ONCE ONE Administration Methylprednisolone Sodium Succinate 60 mg 02/05/23 18:04 02/05/23 18:32 Methylprednisolone Sod Succ 125 Mg/2 Ml Vial IM 02/05/23 18:05 60 mg ONCE ONE Administration <AMANDA Romero - Last Filed: 02/05/23 15:57> Medications Administered Discontinued Medications Generic Name Dose Route Start Last Admin Trade Name Freq PRN Reason Stop Dose Admin Albuterol Sulfate 2.5 mg 02/05/23 15:55 02/05/23 17:38 Albuterol Sulfate (0.083%) 2.5 Mg/3 Ml Vial.Neb INHALE 02/05/23 15:56 2.5 mg ONCE ONE Administration Albuterol Sulfate 2 puff 02/05/23 18:03 02/05/23 18:14 Albuterol Sulfate 90 Mcg 8 Gm Inhaler INHALE 02/05/23 18:04 2 puff ONCE ONE Administration Albuterol Sulfate 5 mg 02/05/23 18:03 02/05/23 18:14 Albuterol Sulfate (0.083%) 2.5 Mg/3 Ml Vial.Neb INHALE 02/05/23 18:04 5 mg ONCE ONE Administration Methylprednisolone Sodium Succinate 60 mg 02/05/23 18:04 02/05/23 18:32 Methylprednisolone Sod Succ 125 Mg/2 Ml Vial IM 02/05/23 18:05 60 mg ONCE ONE Administration <AMANDA Orta - Last Filed: 02/05/23 19:06> Medical Decision Making Medical Decision Making [facility] Narrative: This 22-year-old female patient presents with dyspnea, most likely secondary to asthma exacerbation. Differential diagnosis includes pneumonia and other viral illness. Presentation not consistent with acute cardiac etiologies to include ACS, CHF, pericardial effusion/tamponade. Presentation not consistent with acute respiratory ideologies to include PE, pneumothorax, COPD exacerbation, allergic ideologies, or infectious etiologies. Presentation also not consistent with non, cardiopulmonary causes to include toxic drums, metabolic etiologies such as acidemia or electrolyte derangement, sepsis, neurological causes. Plan: chest xray, labs, nebulizer treatments, IM solu-medrol, serial reassessment Pt education: Pt was not sure what omeprazole does so she was educated on its mechanism and how to take it for it to be most effective. Pt also encouraged to follow-up with PCP to see if it would be appropriate to obtain a new sleep study. <AMANDA Orta - Last Filed: 02/05/23 19:06> Lab Data [facility] Lab Attestation statement: I reviewed the patient's lab results. <AMANDA Orta - Last Filed: 02/05/23 19:06> Result Diagrams: 02/05/23 18:17 02/05/23 18:17 <AMANDA Romero - Last Filed: 02/05/23 15:57> Labs: Lab Results 02/05/23 02/05/23 02/05/23 Range/Units 18:16 18:16 18:16 WBC (4.8-10.8) X10*3/uL RBC (4.20-5.50) X10*6/uL Hgb (12.0-16.0) g/dl Hct (37.0-47.0) % MCV (80.0-98.0) fL MCH (27.0-33.0) pg MCHC (31.0-35.0) g/dl RDW (11.0-16.0) % Plt Count (160-400) X10*3/uL MPV (9.4-12.3) fL Immature Gran % (Auto) (0.0-0.4) % Neut % (Auto) (45-73) % Lymph % (Auto) (20-40) % Major % (Auto) (2-11) % Eos % (Auto) (0-4) % Baso % (Auto) (0-2) % Lymph # (Auto) (1.2-4.9) X10*3/uL Major # (Auto) (0.1-1.2) X10*3/uL Eos # (Auto) (0.0-0.4) X10*3/uL Baso # (Auto) (0.0-0.2) X10*3/uL Abs Immat Gran (auto) (0.00-0.03) X10*3/uL Absolute Neuts (auto) (2.0-8.3) x10*3/uL Absolute Nucleated RBC (0.0-0.012) X10*3/uL Nucleated RBC % (auto) (0.0-0.2) /100WBC Sodium (135-145) mmol/L Potassium (3.3-5.1) mmol/L Chloride (96-108) mmol/L Carbon Dioxide (22-29) mmol/L Anion Gap (12-20) BUN (9-16) mg/dL Creatinine (0.5-1.4) mg/dL Estim Creat Clear Calc Estimated GFR Random Glucose (60-115) mg/dL Calcium (8.4-10.2) mg/dL Magnesium (1.6-2.6) mg/dL Troponin I High Sens < 3.5 (<3.5-17.0) ng/L Beta HCG, Quant mIU/mL COVID-19 ([facility]) Negative (Negative) COVID-19 Clin Com See Note Influenza Type A ([facility]) Negative (Negative) Influenza Type B ([facility]) Negative (Negative) Influenza A & B Note See Note 02/05/23 02/05/23 02/05/23 Range/Units 18:16 18:17 18:17 WBC 17.2 H (4.8-10.8) X10*3/uL RBC 5.05 (4.20-5.50) X10*6/uL Hgb 13.9 (12.0-16.0) g/dl Hct 42.5 (37.0-47.0) % MCV 84.2 (80.0-98.0) fL MCH 27.5 (27.0-33.0) pg MCHC 32.7 (31.0-35.0) g/dl RDW 15.9 (11.0-16.0) % Plt Count 242 (160-400) X10*3/uL MPV 10.4 (9.4-12.3) fL Immature Gran % (Auto) 0.5 H (0.0-0.4) % Neut % (Auto) 82.6 H (45-73) % Lymph % (Auto) 8.9 L (20-40) % Major % (Auto) 4.2 (2-11) % Eos % (Auto) 3.5 (0-4) % Baso % (Auto) 0.3 (0-2) % Lymph # (Auto) 1.5 (1.2-4.9) X10*3/uL Major # (Auto) 0.7 (0.1-1.2) X10*3/uL Eos # (Auto) 0.6 H (0.0-0.4) X10*3/uL Baso # (Auto) 0.1 (0.0-0.2) X10*3/uL Abs Immat Gran (auto) 0.08 H (0.00-0.03) X10*3/uL Absolute Neuts (auto) 14.2 H (2.0-8.3) x10*3/uL Absolute Nucleated RBC 0.000 (0.0-0.012) X10*3/uL Nucleated RBC % (auto) 0.0 (0.0-0.2) /100WBC Sodium 141 (135-145) mmol/L Potassium 4.0 (3.3-5.1) mmol/L Chloride 109 H (96-108) mmol/L Carbon Dioxide 22 (22-29) mmol/L Anion Gap 14 (12-20) BUN 5 L (9-16) mg/dL Creatinine 0.87 (0.5-1.4) mg/dL Estim Creat Clear Calc 120.4 Estimated GFR > 60 Random Glucose 102 (60-115) mg/dL Calcium 9.1 (8.4-10.2) mg/dL Magnesium 2.0 (1.6-2.6) mg/dL Troponin I High Sens (<3.5-17.0) ng/L Beta HCG, Quant < 2 mIU/mL COVID-19 ([facility]) (Negative) COVID-19 Clin Com Influenza Type A ([facility]) (Negative) Influenza Type B ([facility]) (Negative) Influenza A & B Note <AMANAD Romero - Last Filed: 02/05/23 15:57> Lab Results 02/05/23 02/05/23 02/05/23 Range/Units 18:16 18:16 18:16 WBC (4.8-10.8) X10*3/uL RBC (4.20-5.50) X10*6/uL Hgb (12.0-16.0) g/dl Hct (37.0-47.0) % MCV (80.0-98.0) fL MCH (27.0-33.0) pg MCHC (31.0-35.0) g/dl RDW (11.0-16.0) % Plt Count (160-400) X10*3/uL MPV (9.4-12.3) fL Immature Gran % (Auto) (0.0-0.4) % Neut % (Auto) (45-73) % Lymph % (Auto) (20-40) % Major % (Auto) (2-11) % Eos % (Auto) (0-4) % Baso % (Auto) (0-2) % Lymph # (Auto) (1.2-4.9) X10*3/uL Major # (Auto) (0.1-1.2) X10*3/uL Eos # (Auto) (0.0-0.4) X10*3/uL Baso # (Auto) (0.0-0.2) X10*3/uL Abs Immat Gran (auto) (0.00-0.03) X10*3/uL Absolute Neuts (auto) (2.0-8.3) x10*3/uL Absolute Nucleated RBC (0.0-0.012) X10*3/uL Nucleated RBC % (auto) (0.0-0.2) /100WBC Sodium (135-145) mmol/L Potassium (3.3-5.1) mmol/L Chloride (96-108) mmol/L Carbon Dioxide (22-29) mmol/L Anion Gap (12-20) BUN (9-16) mg/dL Creatinine (0.5-1.4) mg/dL Estim Creat Clear Calc Estimated GFR Random Glucose (60-115) mg/dL Calcium (8.4-10.2) mg/dL Magnesium (1.6-2.6) mg/dL Troponin I High Sens < 3.5 (<3.5-17.0) ng/L Beta HCG, Quant mIU/mL COVID-19 ([facility]) Negative (Negative) COVID-19 Clin Com See Note Influenza Type A ([facility]) Negative (Negative) Influenza Type B ([facility]) Negative (Negative) Influenza A & B Note See Note 02/05/23 02/05/23 02/05/23 Range/Units 18:16 18:17 18:17 WBC 17.2 H (4.8-10.8) X10*3/uL RBC 5.05 (4.20-5.50) X10*6/uL Hgb 13.9 (12.0-16.0) g/dl Hct 42.5 (37.0-47.0) % MCV 84.2 (80.0-98.0) fL MCH 27.5 (27.0-33.0) pg MCHC 32.7 (31.0-35.0) g/dl RDW 15.9 (11.0-16.0) % Plt Count 242 (160-400) X10*3/uL MPV 10.4 (9.4-12.3) fL Immature Gran % (Auto) 0.5 H (0.0-0.4) % Neut % (Auto) 82.6 H (45-73) % Lymph % (Auto) 8.9 L (20-40) % Major % (Auto) 4.2 (2-11) % Eos % (Auto) 3.5 (0-4) % Baso % (Auto) 0.3 (0-2) % Lymph # (Auto) 1.5 (1.2-4.9) X10*3/uL Major # (Auto) 0.7 (0.1-1.2) X10*3/uL Eos # (Auto) 0.6 H (0.0-0.4) X10*3/uL Baso # (Auto) 0.1 (0.0-0.2) X10*3/uL Abs Immat Gran (auto) 0.08 H (0.00-0.03) X10*3/uL Absolute Neuts (auto) 14.2 H (2.0-8.3) x10*3/uL Absolute Nucleated RBC 0.000 (0.0-0.012) X10*3/uL Nucleated RBC % (auto) 0.0 (0.0-0.2) /100WBC Sodium 141 (135-145) mmol/L Potassium 4.0 (3.3-5.1) mmol/L Chloride 109 H (96-108) mmol/L Carbon Dioxide 22 (22-29) mmol/L Anion Gap 14 (12-20) BUN 5 L (9-16) mg/dL Creatinine 0.87 (0.5-1.4) mg/dL Estim Creat Clear Calc 120.4 Estimated GFR > 60 Random Glucose 102 (60-115) mg/dL Calcium 9.1 (8.4-10.2) mg/dL Magnesium 2.0 (1.6-2.6) mg/dL Troponin I High Sens (<3.5-17.0) ng/L Beta HCG, Quant < 2 mIU/mL COVID-19 ([facility]) (Negative) COVID-19 Clin Com Influenza Type A ([facility]) (Negative) Influenza Type B ([facility]) (Negative) Influenza A & B Note <AMANDA Orta - Last Filed: 02/05/23 19:06> Independent Interpretation I performed an independent interpretation of an: Plain X-Ray (X-ray reviewed by myself and agreeable with radiologist report) <AMANDA Orta - Last Filed: 02/05/23 19:06> Radiology Impression Discussion of test interpretation with radiology: I have reviewed the radiologist's reading. <AMANDA Orta - Last Filed: 02/05/23 19:06> Radiologist Impression: FINDINGS: The lungs are well expanded. There is no focal consolidation, edema, or effusion. No pneumothorax. The cardiomediastinal silhouette is within normal limits. No acute osseous abnormality. XR/XR chest 1V IMPRESSION: Clear lungs. <AMANDA Orta - Last Filed: 02/05/23 19:06> Prescription Management I considered prescription management with: Antibiotic <AMANDA Orta Last Filed: 02/05/23 19:06> Patient will be given azithromycin, prednisone, Robitussin with codeine an d other symptomatic medications <AMANDA Orta Last Filed: 02/05/23 19:06> Critical Care Time Critical Care Time Critical Care Time: Yes <AMANDA Orta - Last Filed: 02/05/23 19:06> Total Critical Care Time: 60 <AMANDA Orta Last Filed: 02/05/23 19:06> Attestation: I personally attest to this time spent taking care of the patient <AMANDA Orta Last Filed: 02/05/23 19:06> Discharge Plan Discharge Clinical Impression: Asthma exacerbation, Bronchitis, Acute bronchitis with bronchospasm <AMANDA Romero Last Filed: 02/05/23 15:57> Patient Disposition: Home, Self-Care <AMANDA Romero Last Filed: 02/05/23 15:57> Instructions: Asthma (ED), Acute Bronchitis (ED) <AMANDA Romero Last Filed: 02/05/23 15:57> Prescriptions: New azithromycin 250 mg tablet See Rx Instructions PO .COMPLEX Qty: 6 0RF Rx Instructions: take 500 mg today (day 1), then 250 mg for 4 days (days 2-5) prednisone 20 mg tablet 40 mg PO DAILY 5 Days Qty: 10 0RF albuterol sulfate 0.63 mg/3 mL solution for nebulization 0.63 mg inhalation QID PRN (Reason: shortness of breath or wheezing) Qty: 75 0RF albuterol sulfate 90 mcg/actuation HFA aerosol inhaler 1 inh inhalation QID PRN (Reason: shortness of breath or wheezing) Qty: 8.5 0RF codeine-guaifenesin [Guaifenesin AC] 10-100 mg/5 mL liquid 5 ml PO Q6H PRN (Reason: cold symptoms) Qty: 120 0RF No Action doxycycline monohydrate 100 mg tablet 100 mg PO BID Qty: 14 0RF lorazepam [Ativan] 1 mg tablet 1 mg PO BID PRN (Reason: anxiety) Qty: 2 0RF Rx Instructions: Take 1 tablet an hour before coming to the hospital for your procedure to reduce anxiety prednisone 20 mg tablet 40 mg PO DAILY 5 Days Qty: 10 0RF albuterol sulfate 90 mcg/actuation aerosol powdr breath activated 1 inh inhalation Q4-6H PRN (Reason: shortness of breath or wheezing) Qty: 1 0RF albuterol sulfate 2.5 mg /3 mL (0.083 %) solution for nebulization 2.5 mg inhalation Q4-6H PRN (Reason: shortness of breath or wheezing) Qty: 90 0RF oseltamivir [Tamiflu] 75 mg capsule 75 mg PO BID 5 Days Qty: 10 0RF albuterol sulfate [Ventolin HFA] 90 mcg/actuation HFA aerosol inhaler 2 puff inhalation Q4-6H PRN (Reason: shortness of breath or wheezing) Qty: 8.5 1RF prednisone 50 mg tablet 50 mg PO DAILY 4 Days Qty: 4 0RF <AMANDA Romero - Last Filed: 02/05/23 15:57> Referrals: Physician,Unknown J [Primary Care Provider] - (your pcp as needed) <AMANDA Romero - Last Filed: 02/05/23 15:57> Stand Alone Forms: Work/School Release <AMANDA Romero - Last Filed: 02/05/23 15:57>
--- NOTE | 2023-02-05 15:55 | ECG_ITS ---
Test Reason : SOB Blood Pressure : / mmHG Vent. Rate : 092 BPM Atrial Rate : 092 BPM P-R Int : 136 ms QRS Dur : 086 ms QT Int : 332 ms P-R-T Axes : 042 068 025 degrees QTc Int : 410 ms Normal sinus rhythm Normal ECG When compared with ECG of 28-DEC-2022 20:09, No significant change was found Referred By: Omaira Little Electronically Signed By:King Correia
[2023-02-05] MEDS: Albuterol Sulfate (0.083%) 2.5 MG/3 ML VIAL.NEB INHALE (17:38)
[2023-02-05 17:41] VITALS: PULSE 83; RESP 18; O2SAT 98
[2023-02-05] MEDS: Albuterol Sulfate 90 MCG 8 GM INHALER 2 PUFF INHALE (18:14)
[2023-02-05] MEDS: Albuterol Sulfate (0.083%) 2.5 MG/3 ML VIAL.NEB 5 MG INHALE (18:14)
[2023-02-05 18:21] VITALS: PULSE 91; RESP 20; O2SAT 98
[2023-02-05 18:24] LABS: MANUAL DIFF FLAG NO
[2023-02-05 18:26] LABS: Basophils Absolute Auto 0.1 X10*3/uL (0.0-0.2); Basophils Percent Auto 0.3 % (0-2); Eosinophils Absolute Auto 0.6 X10*3/uL (0.0-0.4); Eosinophils Percent Auto 3.5 % (0-4); Hematocrit 42.5 % (37.0-47.0); Hemoglobin 13.9 g/dl (12.0-16.0); Imm Gran Abs Auto 0.08 X10*3/uL (0.00-0.03); Imm Gran Pct Auto 0.5 % (0.0-0.4); Lymphocytes Absolute Auto 1.5 X10*3/uL (1.2-4.9); Lymphocytes Percent Auto 8.9 % (20-40); Mean Corpuscular HGB Conc 32.7 g/dl (31.0-35.0); Mean Corpuscular Hemoglobin 27.5 pg (27.0-33.0); Mean Corpuscular Volume 84.2 fL (80.0-98.0); Mean Platelet Volume 10.4 fL (9.4-12.3); Monocytes Absolute Auto 0.7 X10*3/uL (0.1-1.2); Monocytes Percent Auto 4.2 % (2-11); Neutrophils Absolute Auto 14.2 x10*3/uL (2.0-8.3); Neutrophils Percent Auto 82.6 % (45-73); Platelet Count 242 X10*3/uL (160-400); Red Blood Count 5.05 X10*6/uL (4.20-5.50); Red Cell Distribution Width 15.9 % (11.0-16.0); White Blood Count 17.2 X10*3/uL (4.8-10.8)
[2023-02-05 18:31] VITALS: PULSE 98; RESP 20; O2SAT 100
[2023-02-05] MEDS: methylPREDNISolone Sod Succ 125 MG/2 ML VIAL 60 MG IM (18:32)
[2023-02-05 18:44] LABS: Anion Gap 14 (12-20); Blood Urea Nitrogen 5 mg/dL (9-16); Calcium 9.1 mg/dL (8.4-10.2); Carbon Dioxide 22 mmol/L (22-29); Chloride 109 mmol/L (96-108); Creatinine Clr Calc Pharmacy 120.4; Estimated Glomerular Filt Rate > 60; Glucose Random 102 mg/dL (60-115); Sodium 141 mmol/L (135-145)
[2023-02-05 18:52] LABS: COVID-19 Test Negative (Negative); IDNOW Serial# 08D9AD1C
[2023-02-05 18:53] LABS: IDNOW Serial# BCCEAD1C; Influenza A Negative (Negative); Influenza B2 Negative (Negative)
[2023-02-05 18:55] LABS: HCG Quantitative < 2 mIU/mL; Troponin-I High Sensitivity < 3.5 ng/L (<3.5-17.0)
== END 2023-02-05 19:12 | disposition home or self-care (01) ==
PROVIDERS: Physician Assistant; Physician Assistant Medical; Emergency Provider Internal Medicine
DX: J45.901 Unspecified asthma with (acute) exacerbation (principal); J20.9 Acute bronchitis, unspecified; Z20.822 Contact with and (suspected) exposure to COVID-19
CPT/HCPCS: 36415; 71045; 80048; 83735; 84484; 84702; 85025; 87502; 87635; 93005; 94640; 96372; 99284; 99285; J2930

== ENCOUNTER 2024-12-17 17:01 | Emergency (ER) | payer OTHER, SELFPAY ==
[2024-12-17 17:07] VITALS: BP 122/78; PULSE 87; O2SAT 98
[2024-12-17 17:12] VITALS: BP 117/73; PULSE 85; RESP 18; TEMP 36.8; O2SAT 99; BMI 48.4
--- NOTE | 2024-12-17 17:18 | ED_ITS ---
HPI - General Adult General Chief complaint: Wound/Laceration Stated complaint: THUMB LAC Time Seen by Provider: 12/17/24 21:32 History of Present Illness ED Provider: Debra RODRIGUEZ narrative: The patient is a 24-year-old female who was opening up a package that has been closed with a zip tie. She was using a kitchen knife to cut a zip tie when she accidentally cut her left hand on the dorsal surface at the base of the left thumb. She had a laceration that was bleeding. An ambulance was called and she was brought to the hospital. She has pain at the site of the injury but she does not have any definite sense of inability to extend the thumb. She believes she had a tetanus shot 3 years ago. No other injuries Related Data Previous Rx's ?Medication ?Instructions ?Recorded doxycycline monohydrate 100 mg 100 mg PO BID #14 tabs 04/04/21 tablet lorazepam 1 mg tablet (Ativan) 1 mg PO BID PRN anxiety #2 tabs 04/04/21 albuterol sulfate 2.5 mg/3 mL 2.5 mg (3 mL) inhalation Q4-6H PRN 02/26/22 (0.083 %) solution for nebulization shortness of breath or wheezing #90 mL albuterol sulfate 90 mcg/actuation 1 inh inhalation Q4-6H PRN 02/26/22 breath activated powder inhaler shortness of breath or wheezing #1 ea oseltamivir 75 mg capsule (Tamiflu) 75 mg PO BID 5 days #10 caps 02/26/22 prednisone 20 mg tablet 40 mg (2 x 20 mg) PO DAILY 5 days 02/26/22 #10 tabs albuterol sulfate 90 mcg/actuation 2 puff inhalation Q4-6H PRN 12/28/22 aerosol inhaler (Ventolin HFA) shortness of breath or wheezing #8.5 grams prednisone 50 mg tablet 50 mg PO DAILY 4 days #4 tabs 12/28/22 albuterol sulfate 0.63 mg/3 mL 0.63 mg (3 mL) inhalation QID PRN 02/05/23 solution for nebulization shortness of breath or wheezing #75 mL albuterol sulfate 90 mcg/actuation 1 inh inhalation QID PRN shortness 02/05/23 aerosol inhaler of breath or wheezing #8.5 grams azithromycin 250 mg tablet See Rx Instructions PO .COMPLEX #6 02/05/23 tabs codeine 10 mg-guaifenesin 100 mg/5 5 ml PO Q6H PRN cold symptoms #120 02/05/23 mL oral liquid (Guaifenesin AC) mL prednisone 20 mg tablet 40 mg (2 x 20 mg) PO DAILY 02/05/23 inflammation 5 days #10 tabs Allergies Allergy/AdvReac Type Severity Reaction Status Date / Time rhodes Allergy Hives Verified 12/17/24 17:13 grapefruit Allergy Hives Verified 12/17/24 17:13 latex Allergy Hives Verified 12/17/24 17:13 Penicillins Allergy Hives Verified 12/17/24 17:13 Review of Systems Review of Systems: Yes all other systems are reviewed and are negative [facility] Past Medical History Medical History (Updated 12/17/24 @ 22:23 by Marty Richardson MD) Tourette syndrome Asthma Social History Social History Smoked in Last 30 Days: No Advance Directives: No Advance Directives Information Provided: No Do you have a plan to hurt others: No Plan Patient : No Physical Exam ED Vital Signs: Vital Signs - 24 hr 12/17/24 17:12 12/17/24 20:06 Temperature 98.3 F 98.5 F Pulse Rate 85 82 Respiratory Rate 18 20 Blood Pressure 117/73 129/72 Pulse Oximetry 99 98 Oxygen Delivery Method Room Air Room Air BMI result Body Mass Index 48.4 Const Other: The patient is awake and alert, pleasant cooperative. No distress. HENMT Other: Face is symmetrical. Mucous membranes moist. Eyes General: appearance normal, both eyes and all related structures Neck Neck: Yes full ROM Resp Effort & Inspection: normal respiratory effort Skin Other: There is a 3 cm laceration on the dorsal surface of the left hand at the base of the thumb overlying the metacarpal bone of the thumb. The laceration is transverse to the long axis of the thumb. The wound edges are fairly clear. It is a full-thickness laceration with exposure of the subcutaneous fat. Neuro Other: Normal sensation of the tip of the thumb. The patient is otherwise neurologi refugio intact. Extrem Other: There is a transverse laceration across the dorsum of the left hand overlying the metacarpal bone of the left thumb. The laceration is in the region of the extensor tendons of the thumb. The patient had pain when I attempted to test the function of the extensor tendons but I was not convinced that she had any actual loss of function. After anesthesia the patient seemed to be able to fully extend her thumb and resist flexion well without pain. Overall I do not appreciate any definite loss of extensor tendon function. Course Course Course Narrative: RME, this is a rapid medical exam performed by Anthony Edward please refer to primary provider for complete H&P- 24-year-old female presents for evaluation via ambulance for a left hand laceration. She accidentally cut the dorsal surface of the left hand at the base of the thumb using a knife while trying to open up a child's toy. Your tetanus is up-to-date. She has a about a 3 cm linear laceration. Procedures Laceration Laceration 1: Site: hand Side (If applicable): left Size (cm): 3 Description: linear Depth: simple, single layer Local Anesthetic: lidocaine 1% Amount of anesthesia used (mL): 6 Pre-repair: wound explored (There was a lot of subcutaneous fat. I could not visualize any tendons.) and irrigated extensively Skin layer closed with: nylon Size (cm): 4-0 Number of sutures: 6 Technique: simple, interrupted Medical Decision Making Medical Decision Making MDM Narrative: The patient has a laceration over the back of the left hand over the metacarpal of the left thumb near the extensor tendons. This seems to be fairly straight forward laceration. She is up-to-date on tetanus. Clinically I do not appreciate any definite loss of extensor tendon function. After prepping the wound and anesthetizing the wound I explored the wound. There was a lot of subcutaneous fat. I was unable to visualize any tendons. After wound anesthesia the patient seemed to be able to fully extend the thumb without apparent discomfort. Clinically my suspicion for an injury to the extensor tendons is low. I close the wound using standard suturing protocol. Wound was copiously irrigated with normal saline. The wound was closed with 6 simple interrupted stitches using 4-0 Ethilon. Wound care instructions were reviewed with the patient and her mother. She should get the stitches out in 10 days. If she has any concerns about the strength of the extensor function of her thumb she should contact the orthopedic office for an evaluation there. Discharge Plan Discharge Clinical Impression: Laceration of left thumb Patient Disposition: Home, Self-Care Instructions: Finger Laceration (ED) Additional Instructions: Keep the wound clean and dry. Apply bacitracin to the wound 2 times a day for the 1st 2 days. You may also apply some bacitracin before taking a shower. You may shower after 24 hours (Saturday morning). The stitches should be removed in 10 days. This may be done at your primary care doctor's office. Please call for an appointment for suture removal. As far as I can tell I do not think you injured the extensor tendons of the thumb. The wound is near the extensor tendons but I think your extensor tendon function is normal. If you have concerns about your ability to extend your thumb please contact the orthopedic office for an evaluation there. If you have any concerns about a possible infection please return to the emergency room for evaluation. Prescriptions: No Action doxycycline monohydrate 100 mg tablet 100 mg PO BID Qty: 14 0RF lorazepam [Ativan] 1 mg tablet 1 mg PO BID PRN (Reason: anxiety) Qty: 2 0RF Rx Instructions: Take 1 tablet an hour before coming to the hospital for your procedure to reduce anxiety prednisone 20 mg tablet 40 mg PO DAILY 5 Days Qty: 10 0RF albuterol sulfate 90 mcg/actuation aerosol powdr breath activated 1 inh inhalation Q4-6H PRN (Reason: shortness of breath or wheezing) Qty: 1 0RF albuterol sulfate 2.5 mg /3 mL (0.083 %) solution for nebulization 2.5 mg inhalation Q4-6H PRN (Reason: shortness of breath or wheezing) Qty: 90 0RF oseltamivir [Tamiflu] 75 mg capsule 75 mg PO BID 5 Days Qty: 10 0RF albuterol sulfate [Ventolin HFA] 90 mcg/actuation HFA aerosol inhaler 2 puff inhalation Q4-6H PRN (Reason: shortness of breath or wheezing) Qty: 8.5 1RF prednisone 50 mg tablet 50 mg PO DAILY 4 Days Qty: 4 0RF azithromycin 250 mg tablet See Rx Instructions PO .COMPLEX Qty: 6 0RF Rx Instructions: take 500 mg today (day 1), then 250 mg for 4 days (days 2-5) prednisone 20 mg tablet 40 mg PO DAILY 5 Days Qty: 10 0RF albuterol sulfate 0.63 mg/3 mL solution for nebulization 0.63 mg inhalation QID PRN (Reason: shortness of breath or wheezing) Qty: 75 0RF albuterol sulfate 90 mcg/actuation HFA aerosol inhaler 1 inh inhalation QID PRN (Reason: shortness of breath or wheezing) Qty: 8.5 0RF codeine-guaifenesin [Guaifenesin AC] 10-100 mg/5 mL liquid 5 ml PO Q6H PRN (Reason: cold symptoms) Qty: 120 0RF Referrals: Monae Guido MD [Primary Care Provider] - (Suture removal) [facility] [Provider Group] (Left thumb laceration near extensor tendons.) Print Language: Egyptian
[2024-12-17 20:06] VITALS: BP 129/72; PULSE 82; RESP 20; TEMP 36.9; O2SAT 98
[2024-12-17] MEDS: Lidocaine HCl 1 % MPF 5 ML VIAL 10 ML INFILTRATI (22:39)
[2024-12-17] MEDS: Bacitracin Oint 0.9 GM PACKET 1 APPL TOPICAL (22:39)
[2024-12-17 23:00] VITALS: BP 129/72; PULSE 82; RESP 20; TEMP 36.9; O2SAT 98
== END 2024-12-17 23:02 | disposition home or self-care (01) ==
PROVIDERS: Emergency Provider Emergency Medicine; PCP Family Medicine
DX: S61.012A Laceration without foreign body of left thumb without damage to nail, initial encounter (principal); W26.0XXA Contact with knife, initial encounter; M79.642 Pain in left hand; Y93.9 Activity, unspecified; Y92.009 Unspecified place in unspecified non-institutional (private) residence as the place of occurrence of the external cause; Y99.9 Unspecified external cause status
CPT/HCPCS: 12002; 99284; J2003

== ENCOUNTER 2025-05-22 13:43 | Emergency (ER) | payer OTHER, SELFPAY ==
--- NOTE | ~2025-05-22 | US_ITS ---
CLINICAL HISTORY: left lower abdominal pain US pelvis transabdominal and transvaginal with color and duplex Doppler Comparison: None Findings: Transabdominal scanning performed for overall anatomy. Transvaginal scanning performed for additional detail. LMP: 1 day ago Anteverted uterus, normal size, and echotexture, measuring 7.5 x 3.5 x 3.9 cm. Well defined endometrium, measuring 7.0 mm in thickness. The right ovary measures, 2.3 x 1.8 x 2.0 cm. Normal sonographic appearance right ovary. Normal color Doppler with normal ovarian arterial and venous spectral tracing, The left ovary measures, 2.2 x 1.2 x 2.0 cm. Normal sonographic appearance left ovary. Suboptimal Doppler evaluation of the left ovary due to the position of the ovary and shadow artifact. Arterial Doppler waveforms were documented in the left ovary. Clinical correlation advised. No adnexal masses or fluid collections. Trace free fluid Impression: 1. Normal uterus. 2. Normal sonographic appearance of the left ovary limited Doppler interrogation due to ovarian positioning and adjacent shadow artifact. 3. Normal right ovary/adnexa. This document has been electronically signed by: Saji Marin MD on 05/22/2025 18:03:11
--- NOTE | 2025-05-22 13:51 | ED_ITS ---
HPI - Abdominal Pain General Chief Complaint: Vaginal Bleeding Stated Complaint: abd pain, vaginal bleeding, Time Seen by Provider: 05/22/25 15:35 Source: patient, RN notes reviewed and old records reviewed Mode of arrival: ambulatory Limitations: no limitations History of Present Illness ED Provider: Cheyanne RODRIGUEZ narrative: 24-year-old female with past medical history significant for obesity, asthma presents for evaluation of vaginal bleeding. Patient reports she developed significant lower abdominal pain with heavy vaginal bleeding since last night. Her pain is an 8/10 She reports that she is bleeding through 3 pads today. Her last menstrual cycle was March 18. She reports she took 2 separate home test on Saturday, 5 days ago, both of which were reportedly positive That would be her 1st She is not on any contraception. Denies any new sexual partners. Denies any previous abdominal surgery. Denies any fevers or chills Related Data Previous Rx's ?Medication ?Instructions ?Recorded doxycycline monohydrate 100 mg 100 mg PO BID #14 tabs 04/04/21 tablet lorazepam 1 mg tablet (Ativan) 1 mg PO BID PRN anxiety #2 tabs 04/04/21 albuterol sulfate 2.5 mg/3 mL 2.5 mg (3 mL) inhalation Q4-6H PRN 02/26/22 (0.083 %) solution for nebulization shortness of breat h or wheezing #90 mL albuterol sulfate 90 mcg/actuation 1 inh inhalation Q4 -6H PRN 02/26/22 breath activated powder inhaler shortness of breath or wheezing #1 ea oseltamivir 75 mg capsule (Tamiflu) 75 mg PO BID 5 day s #10 caps 02/26/22 prednisone 20 mg tablet 40 mg (2 x 20 mg) PO DAILY 5 days 02/26/22 #10 tabs albuterol sulfate 90 mcg/actuation 2 puff inhalation Q 4-6H PRN 12/28/22 aerosol inhaler (Ventolin HFA) shortness of breath or wheezing #8.5 grams prednisone 50 mg tablet 50 mg PO DAILY 4 days #4 tab s 12/28/22 albuterol sulfate 0.63 mg/3 mL 0.63 mg (3 mL) inhalati on QID PRN 02/05/23 solution for nebulization shortness of breath or wheez ing #75 mL albuterol sulfate 90 mcg/actuation 1 inh inhalation QI D PRN shortness 02/05/23 aerosol inhaler of breath or wheezing #8.5 g sourav azithromycin 250 mg tablet See Rx Instructions PO .COM PLEX #6 02/05/23 tabs codeine 10 mg-guaifenesin 100 mg/5 5 ml PO Q6H PRN col d symptoms #120 02/05/23 mL oral liquid (Guaifenesin AC) mL prednisone 20 mg tablet 40 mg (2 x 20 mg) PO DAILY 0 02/05/23 inflammation 5 days #10 tabs Allergies Allergy/AdvReac Type Severity Reaction Status Date / Time rhodes Allergy Hives Verified 05/22/25 13:52 grapefruit Allergy Hives Verified 05/22/25 13:52 latex Allergy Hives Verified 05/22/25 13:52 Penicillins Allergy Hives Verified 05/22/25 13:52 Review of Systems Constitutional: Denies body ache(s), Denies chills and Denies fever(s) Eyes: Denies blurry vision Denies dizziness Cardiovascular: Denies chest pain and Denies dyspnea on exertion Respiratory: Denies cough and Denies dyspnea on exertion Gastrointestinal: Reports abdominal pain, Denies nausea and Denies vomiting Genitourinary: Reports menorrhagia, Denies dysuria and Reports pelvic pain Musculoskeletal: Denies back pain Skin/Breast: Denies rash Denies dizziness Psychiatric: Denies anxiety PMFSH Past Medical History Medical History (Updated 05/22/25 @ 18:07 by Lexy Isbell RN) Tourette syndrome Asthma Social History Social History Alcohol intake: never Smoked in Last 30 Days: No Advance Directives: No Advance Directives Information Provided: Yes Physical Exam ED Vital Signs: Vital Signs - 24 hr 05/22/25 13:52 05/22/25 16:00 05/22/25 18:07 Temperature 98.2 F 97.6 F 97.6 F Pulse Rate 115 H 80 80 Respiratory Rate 16 16 16 Blood Pressure 117/76 122/69 122/69 Pulse Oximetry 96 99 99 Oxygen Delivery Method Room Air Room Air Room Air BMI result Body Mass Index 51.1 Const General: healthy appearing, comfortable, no acute distress, alert and awake Nutritional Appearance: well nourished Orientation/consciousness: patient oriented x3 HENMT Head: Yes normocephalic and Yes atraumatic Eyes Eyelids: Yes eyelids normal Conjunctivae: conjunctivae normal Sclerae: sclerae normal Corneas: corneas normal Pupils: Equal, round and reactive pupils present EOM: EOMs intact bilaterally Neck Neck: Yes full ROM Resp Effort & Inspection: normal respiratory effort, able to speak in complete sentences and not labored Cardio Rate: regular rate Rhythm: regular rhythm GI Inspection: No distended Palpation (GI): Soft to palpation, not firm, Tenderness to palpation present (GI) in the LLQ, in the RLQ and suprapubicly, no guarding and not rigid Auscultation: normoactive bowel sounds Skin General skin exam: elasticity normal Neuro General: patient oriented x3 Cranial nerves: Yes Equal, round and reactive pupils present and Yes Bilaterally intact EOM present Cognition (Neuro): normal cognition Extrem Other: Moving all extremities well without any obvious deformities Course Course Course Narrative: Mike Warren APRN This is a rapid medical exam. Deferred additional HPI, ROS, PE to primary provider. 24 yo female with history of asthma here with complaints of abdominal pain, vaginal bleeding since last evening. Has gone through 3 pads. + test on 04/24 at home. LMP 03/18. Has Lexdir appt on 06/02 with her PCP. No appt with [facility]. This is her first . Will obtain labs, UA VSS Medical Decision Making Medical Decision Making [facility] Narrative: 24-year-old female presents for evaluation of lower abdominal pain. Her pain started last night with associated vaginal bleeding. She reports positive test several days ago. However her urine test today was negative, her serum hCG was undetectable. Therefore it is unlikely that she had a positive test on Saturday with a spontaneous given how quickly the hCG would have has a dropped to less than 2 but it is not entirely impossible. The patient has a mild leukocytosis with a left shift. Plan for a pelvic ultrasound to evaluate for tubo-ovarian abscess. I did recommend a pelvic exam but the patient declines at this time. Differential Diagnosis Differential Diagnoses: The differential diagnosis associated with the presentation includes Ectopic Spontaneous Tubo-ovarian abscess Dysmenorrhea Lab Data [facility] Lab Attestation statement: I reviewed the patient's lab results. Mild leukocytosis of the above. No significant anemia. Normal platelet count. No electrolyte abnormalities warranting intervention. Random glucose of 124 but the patient is not a diagnosed diabetic. This is likely just due to recently eating 05/22/25 14:25 05/22/25 14:25 Labs: Lab Results 05/22/25 Range/Units 14:25 WBC 13.4 H (4.8-10.8) X10*3/uL RBC 5.39 (4.20-5.50) X10*6/uL Hgb 13.6 (12.0-16.0) g/dl Hct 41.7 (37.0-47.0) % MCV 77.4 L (80.0-98.0) fL MCH 25.2 L (27.0-33.0) pg MCHC 32.6 (31.0-35.0) g/dl RDW 16.8 H (11.0-16.0) % Plt Count 271 (160-400) X10*3/uL MPV 10.3 (9.4-12.3) fL Immature Gran % (Auto) 0.5 H (0.0-0.4) % Neut % (Auto) 80.1 H (45-73) % Lymph % (Auto) 12.7 L (20-40) % [place] % (Auto) 5.0 (2-11) % Eos % (Auto) 1.5 (0-4) % Baso % (Auto) 0.2 (0-2) % Lymph # (Auto) 1.7 (1.2-4.9) X10*3/uL [place] # (Auto) 0.7 (0.1-1.2) X10*3/uL Eos # (Auto) 0.2 (0.0-0.4) X10*3/uL Baso # (Auto) 0.0 (0.0-0.2) X10*3/uL Abs Immat Gran (auto) 0.07 H (0.00-0.03) X10*3/uL Absolute Neuts (auto) 10.8 H (2.0-8.3) x10*3/uL Absolute Nucleated RBC 0.000 (0.0-0.012) X10*3/uL Nucleated RBC % (auto) 0.0 (0.0-0.2) /100WBC Sodium 139 (135-145) mmol/L Potassium 4.1 (3.3-5.1) mmol/L Chloride 108 (96-108) mmol/L Carbon Dioxide 24 (22-29) mmol/L Anion Gap 11 L (12-20) BUN 7 L (9-16) mg/dL Creatinine 0.95 (0.5-1.4) mg/dL Estim Creat Clear Calc 113.0 Estimated GFR > 60 Random Glucose 124 H (60-115) mg/dL Calcium 8.9 (8.4-10.2) mg/dL Total Bilirubin 0.7 (0.0-1.0) mg/dL Direct Bilirubin 0.3 (0.0-0.5) mg/dL AST 26 (5-31) U/L ALT 13 (0-31) U/L Alkaline Phosphatase 74 (39-117) U/L Total Protein 7.9 (6.5-8.0) g/dL Albumin 4.0 (3.5-5.0) g/dL Beta HCG, Quant < 2 mIU/mL Urine Color Red A Urine Appearance Hazy Urine pH 6.5 (5.0-9.0) Ur Specific [place] 1.015 (1.005-1.025) Urine Protein 100 (2+) H (Neg-Trace) mg/dL Urine Glucose (UA) Negative (Negative) mg/dL Urine Ketones Negative (Negative) mg/dL Urine Blood Large (3+) H (Negative) Urine Nitrite Negative (Negative) Ur Leukocyte Esterase Moderate (2+) H (Negative) Urine RBC >20 H (0-2) /HPF Urine WBC 6-10 (0-5) /HPF Ur Squamous Epith Cells 3-5 (0-2) /HPF Urine Bacteria Trace (None Seen) Hyaline Casts 0-2 (0-2) /LPF Urine Test NEGATIVE (NEGATIVE) Radiology Impression Discussion of test interpretation with radiology: I have reviewed the radiologist's reading. Radiologist Impression: Findings: Transabdominal scanning performed for overall anatomy. Transvaginal scanning performed for additional detail. LMP: 1 day ago Anteverted uterus, normal size, and echotexture, measuring 7.5 x 3.5 x 3.9 cm. Well defined endometrium, measuring 7.0 mm in thickness. The right ovary measures, 2.3 x 1.8 x 2.0 cm. Normal sonographic appearance right ovary. Normal color Doppler with normal ovarian arterial and venous spectral tracing, The left ovary measures, 2.2 x 1.2 x 2.0 cm. Normal sonographic appearance left ovary. Suboptimal Doppler evaluation of the left ovary due to the position of the ovary and shadow artifact. Arterial Doppler waveforms were documented in the left ovary. Clinical correlation advised. No adnexal masses or fluid collections. Trace free fluid Impression: 1. Normal uterus. 2. Normal sonographic appearance of the left ovary limited Doppler interrogation due to ovarian positioning and adjacent shadow artifact. 3. Normal right ovary/adnexa. This document has been electronically signed by: Saji Marin MD on 05/22/2025 18:03:11 Discharge Plan Discharge Clinical Impression: Vaginal bleeding Patient Disposition: Left W/O Completing Treatment Prescriptions: No Action doxycycline monohydrate 100 mg tablet 100 mg PO BID Qty: 14 0RF lorazepam [Ativan] 1 mg tablet 1 mg PO BID PRN (Reason: anxiety) Qty: 2 0RF Rx Instructions: Take 1 tablet an hour before coming to the hospital for your procedure to reduce anxiety prednisone 20 mg tablet 40 mg PO DAILY 5 Days Qty: 10 0RF albuterol sulfate 90 mcg/actuation aerosol powdr breath activated 1 inh inhalation Q4-6H PRN (Reason: shortness of breath or wheezing) Qty: 1 0RF albuterol sulfate 2.5 mg /3 mL (0.083 %) solution for nebulization 2.5 mg inhalation Q4-6H PRN (Reason: shortness of breath or wheezing) Qty: 90 0RF oseltamivir [Tamiflu] 75 mg capsule 75 mg PO BID 5 Days Qty: 10 0RF albuterol sulfate [Ventolin HFA] 90 mcg/actuation HFA aerosol inhaler 2 puff inhalation Q4-6H PRN (Reason: shortness of breath or wheezing) Qty: 8.5 1RF prednisone 50 mg tablet 50 mg PO DAILY 4 Days Qty: 4 0RF azithromycin 250 mg tablet See Rx Instructions PO .COMPLEX Qty: 6 0RF Rx Instructions: take 500 mg today (day 1), then 250 mg for 4 days (days 2-5) prednisone 20 mg tablet 40 mg PO DAILY 5 Days Qty: 10 0RF albuterol sulfate 0.63 mg/3 mL solution for nebulization 0.63 mg inhalation QID PRN (Reason: shortness of breath or wheezing) Qty: 75 0RF albuterol sulfate 90 mcg/actuation HFA aerosol inhaler 1 inh inhalation QID PRN (Reason: shortness of breath or wheezing) Qty: 8.5 0RF codeine-guaifenesin [Guaifenesin AC] 10-100 mg/5 mL liquid 5 ml PO Q6H PRN (Reason: cold symptoms) Qty: 120 0RF Interventions: ED Discharge Assessment Last Done: 05/22/25 18:07 Discharge Date/Time: 05/22/25 18:08
[2025-05-22 13:52] VITALS: BP 117/76; PULSE 115; RESP 16; TEMP 36.8; O2SAT 96; BMI 51.1
[2025-05-22 14:30] LABS: MANUAL DIFF FLAG NO
[2025-05-22 14:32] LABS: Basophils Percent Auto 0.2 % (0-2); Eosinophils Absolute Auto 0.2 X10*3/uL (0.0-0.4); Eosinophils Percent Auto 1.5 % (0-4); Hematocrit 41.7 % (37.0-47.0); Hemoglobin 13.6 g/dl (12.0-16.0); Imm Gran Abs Auto 0.07 X10*3/uL (0.00-0.03); Imm Gran Pct Auto 0.5 % (0.0-0.4); Lymphocytes Absolute Auto 1.7 X10*3/uL (1.2-4.9); Lymphocytes Percent Auto 12.7 % (20-40); Mean Corpuscular HGB Conc 32.6 g/dl (31.0-35.0); Mean Corpuscular Hemoglobin 25.2 pg (27.0-33.0); Mean Corpuscular Volume 77.4 fL (80.0-98.0); Mean Platelet Volume 10.3 fL (9.4-12.3); Monocytes Absolute Auto 0.7 X10*3/uL (0.1-1.2); Neutrophils Absolute Auto 10.8 x10*3/uL (2.0-8.3); Neutrophils Percent Auto 80.1 % (45-73); Platelet Count 271 X10*3/uL (160-400); Red Blood Count 5.39 X10*6/uL (4.20-5.50); Red Cell Distribution Width 16.8 % (11.0-16.0); White Blood Count 13.4 X10*3/uL (4.8-10.8)
--- OUTSIDE RECORDS SUMMARY | 2025-05-22 14:38 | XMS_ITS | Clinical Summary ---
Author Organization Patient Business Ser [facility] Address [address] [place] [address] Care Team Providers Care Job Change Crew Member Name Role Phone Monae Guido MD Primary Care Provider Allergies Active Allergy Reactions Criticality Noted Date Comments Amoxicillin Rash 12/14/2019 Cat Hair Standardized Allergenic Extract Runny nose Medium 10/02/2007 Roman 07/21/2020 Rash around mouth, itchy throat Dog Dander 02/23/2009 [place] Tar 02/23/2009 Pollen Extracts 02/23/2009 Medications EPINEPHrine (EpiPen 2-Ritesh) 0.3 mg/0.3 mL injection Inject 0.3 mL (0.3 mg total) as directed. 024 Active cetirizine (ZyrTEC) 10 mg tablet TAKE 1 TABLET BY MOUTH EVERY DAY 90 tablet 1 025 Active omeprazole (PriLOSEC) [address] capsule TAKE 1 CAPSULE BY MOUTH DAILY NEEDED (ACID REFLUX). 90 capsule 1 025 Active Ventolin HFA 90 mcg/actuation inhaler INHALE 2 PUFFS INTO THE LUNGS EVERY 6 HOURS NEEDED FOR COUGH, WHEEZING OR SHORTNESS OF BREATH. 18 g 3 025 Active budesonide-form oteroL (SYMBICORT) 80-4.5 mcg/actuation inhalerIndicati ons:Mild persistent asthma without complication Inhale 2 puffs by mouth 2 (two) times a day. 30.6 g 025 2025 Active albuterol 2.5 mg /3 mL (0.083 %) nebulizer solution Take 3 mL (2.5 mg total) by nebulization every 6 (six) hours if needed for wheezing or shortness of breath. 75 mL 1 025 Active fluticasone propionate (FLONASE) 50 mcg/actuation nasal spray SPRAY 1 SPRAY INTO EACH NOSTRIL EVERY DAY 48 g 025 Active fluticasone propionate (FLONASE) 50 mcg/actuation nasal spray USE 1 SPRAY IN EACH NOSTRIL ONCE DAILY 32 mL 1 024 2024 Discontinued albuterol 2.5 mg /3 mL (0.083 %) nebulizer solution Take 3 mL (2.5 mg total) by nebulization every 6 (six) hours if needed for wheezing or shortness of breath. 75 mL 5 025 2024 Discontinued(R eorder) Active Problems Problem Noted Date Diagnosed Date Abnormal weight gain 09/02/2024 Overview (09/02/2024): [facility] [facility] 12-25-0712/[address] Sanchez 1,2,3. Nl cholesterol, nl fasting insulin 05/08: low HDl, nl total cholesterol , (120) 01/09: nl ruq abd ultrasound 07/10 Had lost a few pounds, but gained them back Last Assessment & Plan: Will refer again to Dr. Sanchez's 123 program. Mom now concerned as child is approaching 200 pounds Homeless single person 06/29/2022 Cellulitis and abscess of trunk 05/03/2021 Overview (09/02/2024): 04/04/21: seen at [facility]. Declined I + D. rx doxycycline 100 mg po bid, ativen 1 mg po bid prn anxiety quantity 2. Marihuana dependence ([facility] V24, [facility] V28) 02/24/2021 Perennial allergic rhinitis 07/21/2020 Perennial allergic conjunctivitis of both eyes 0 07/21/2020 Abscess of right breast 03/09/2020 Overview (09/02/2024): 03/07/20: seen at [facility] ER, Bedside surgical I + D. Moderate amount of pus removed. F/u with breast surgeon prn. Rx doxycyclone Major depression 01/16/2020 Overview (09/02/2024): 10/13: zoloft 11/12: effexor ER, helped with depression, but dry mouth, insomnia, she stopped the meds 01/14: trial of wellbutrin 07/14: has pyschiatrist. Restarted respiridone Dysmenorrhea in the adolescent 10/29/2019 Hydradenitis 04/14/2015 Overview (09/02/2024): 03/08: seen by Dr. Arauz for abscess between breasts. 04/08: axillary lesion treated with clindamycin and bactrim 12/10: treated with clindamcyin and Bactrim. Culture staph aureus 01/10: axillary lesions treated with clindamycin and doxycycline 02/07: seen by Dr. Arauz. Topical clindamycin lotion. Surgical excision of two areas in right axilla. 07/10 No dishcarge noted. She says this has been better since seeing Surgeons in January 27: seen by Dr. Christensen. Minocycline BID for 3 months Migraine headache 05/12/2014 Overview (09/02/2024): 05/25/14: appt with Dr. Miller 02/08/20: seen by Dr. Lewis, worsening migraines: topamax 100 mg po daily. F/u 2 months 04/27/20: seen by Dr. Lewis, doing well on topmax 50 mg po daily. Sumatriptan prn. F/u 6 months Asthma, moderate persistent 12/22/2012 Overview (09/02/2024): Last Assessment & Plan: qvar and singulair Tourette's disorder 09/21/2011 Overview (09/02/2024): Seen by Dr. Miller, guanfacine 1.5 tablets BID. May consider adding respiridone. Neurology with discuss with psychiatry first 10/30/2011 worsening of coprolaia, f--k in the classroom daily. Started on clonazepam 0.5 mg in the morning. Taper off guanfacine. 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 Add clonidine 0.1 mg at bedtime 01/29/12: respiridone 1 mg tablets 1.5 tablets po BID, clonidine 0.2 mg at bedtime. F/u 6 months 08/19/12 respirdione 1 mg tablets 1.5 mg tablets po BID. Clonidine 0.2 mg at night. Habit reversal therapy. No more vocal tics 11/05 family did not go to habit reversal therapy. Max dose of meds. respiridone 1.5 mg BID, clonidine 0.2 mg. Referred again to Dr. Alecia Morales for habit reversal therapy. May consider changing to pimozide. Lipid panel, alt, cbc, prolactin level. 03/07: seen by Dr. Miller. Sx controlled with risperidone 1.5 mg BID. , will monitor lipid profile and fasting glucose. F/u 6 months 03/11 Dr Tim Dudley [facility] Clonazapam 1/2 mh tab 1 @0630, 2 @ 9pm daily FU 1 month 01/07/14: f/u with Dr. Miller 05/08: Pimozide, oral. Well controlled sx 02/06: pt self d/c'd the pimozide, marked increase in motor and vocal tic. Seen by Dr. Miller, rx Tetraphenazine. Referred to behavioral health for habit reversal. May need formal psychiatric evaluation. Tetrabenazine 12.5 mg 1 tab daily, then BID, then 1 in the morning 2 at night, then 2 tablets BID. F/u 2 months 04/08: Tetrabenazine 25 mg BID, emotional lability on tetrabenazine 04/22/15: decrease tetrabenazine 12.5 mg to 1 in the morning and 2 at night for a week ,the 1 BID, F/u in 6 weeks and consider changing to Respiridone or Geodon. Behavioral health for habit reversal. 07/22/15: seen by Neurology tetrabenzaine 12.5 mg tablet 1.5 tabs q hs. Not controlling sx. Habit reversal therapy. Taper and discontinue tetrabenazine. F/u 6 weeks. May consider trazadone. 11/08: seen by neurology: no appointment made for habit reversal therapy, clonazepam and habit reversal therapy. Clonazepam 0.5 mg at night, BID prn sx 05/04/16: Seen by pedi neurology, Dr. Miller. clonazepam 0.5 mg increased to 1 tablet in the morning and 2 at night. Motrin 800 mg for migraine. Referral to [facility] psychiatric. 08/1618: seen by Dr. Lewis, adult neurology. Advised to decrease the clonazpam by one pill every 2 weeks to either 1.5 tablets at Night or completely wean off. Started on fluoxetine 10 mg, sleep study Last Assessment & Plan: F/u Dr. Miller 2. Acanthosis nigricans 04/26/2010 Overview (09/02/2024): Last Assessment & Plan: unchanged Lactose intolerance 04/26/2010 Seasonal allergic rhinitis 07/27/2009 Overview (09/02/2024): 10/14/17: seen by Dr. Carpenter. Nl spirometry, retry Flonase. Nystatin swish and spit, F/u 2 weeks for testing Last Assessment & Plan: Currently asx Immunizations Name Administration Dates Next Due DTaP (Infanrix) 6wks to less than 7yo ,10/15/2002,01/27/2002,11/26,2001 [id number] (Pentacel) 2mo to less than 5yo 07/08/2002,01/27/2002,2001,09/24 H1N1 Inj Preservative Free 09/29/2009 HPV, Quadrivalent 04/14/2015,12/23/2013,12/22/19 13 Hepatitis B Pediatric (Enger ix B; Recombivax HB) to less than 20 yo 01/27/2002,2001,2001 IPV Inactivated polio (Ipol) 6wks and older 09/13/2005,10/15/2002,2001,09/24 Influenza trivalent, 0.5mL, preservative free (Fluarix; FluLaval; Fluzone) ages 6mo and older (Afluria) 3 years and older 08/07/2018,10/05/2016,12/23/2013,09/29,09/21/2011,01/04/2011,09/06/2008 ,10/02/2007,09/17/2006,09/13/2005 MMR, measles mumps and rubel la Live (Priorix; M-M-R II) 12mo and older 09/13/2005,07/08/2002 MMRV, measles mumps rubella and varicella live (Proquad) 4yo to less than 7yo 09/13/2005 Meningococcal MCV4P 07/18/2017,12/22/2012 Pneumococcal Conjugate Vacci ne, 7 Valent 07/08/2002,01/27/2002,2001,09/24 Tdap Tetanus diptheria acell ular pertussis (Boostrix; Adacel) 7yo and older 12/22/2012 Varicella live (Varivax) 12m o and older 01/04/2011,07/08/2002 Surgical History Surgery Date Site/Laterality Comments OTHER SURGICAL HISTORY 02/08/16 Right PROCEDURE: SKIN EXCISION; COMMENT: excision right axillary hydradenitis 10 cm and [address] Arauz OTHER SURGICAL HISTORY PROCEDURE: AK ENDOSCOPY UPPER SMALL INTESTINE Medical History Medical History Date Comments Unspecified asthma(493.90) DX:Un specified asthma(493.90); COMMENT: Dr. Henriquez: 09-01: advair 2pbid, singulair, alb bid Unspecified family circumstance 06/29 DX:Unspecified family circumstance; COMMENT: 52a 03/06 case never opened Abnormal weight gain 10-01 DX:Abnormal weight gain; COMMENT: [facility] 12-25-07 Lactose intolerance DX:Lactose i ntolerance Streptococcal pharyngitis 05/03 DX:Str eptococcal pharyngitis Migraine headache 06/02 DX:Migraine he adache; COMMENT: 09/04 occassional headache, neg MRI, seen by [facility] neuro, had been on Imipramine, stopped meds Asthma with exacerbation 02/01 * 2 DX:Asth ma with exacerbation; COMMENT: prednisone burst, 04/05 09/05 Learning disabilities 04/03 DX:Learnin g disabilities; COMMENT: math and reading Tic disorder 01/05 DX:Tic disorder; COMMENT: sent to neurology Sleep disorder 01/05 DX:Sleep disorde r; COMMENT: normal sleep study 12/07 Blood in stool 01/05 DX:Blood in stoo l; COMMENT: sent to GI, resolved as of 12/07 Tourette's disorder 08/05 DX:Tourette' s disorder; COMMENT: guanfacine Seasonal allergies DX:Seasonal a llergies Vitamin D insufficiency 12/07 DX:Vitam in D insufficiency; COMMENT: vit d supplement given Asthma exacerbation 04/14/2012 DX:Asthma ex acerbation; COMMENT: 04/05, [facility] ED, two duoneb treatments and prednisone burst Pilonidal disease 03/08 DX:Pilonidal d isease; COMMENT: treated with abx. Seen by [facility] surgery. consider excision Female gynecomastia 05/10/2014 DX:Female gy necomastia Epigastric abdominal pain 01/06/2015 DX:Epi gastric abdominal pain; COMMENT: 01/09: seen at [facility] ED History of early menarche DX:His tory of early menarche; COMMENT: Frist period was at age 9 Eczema 02/23/2009 DX:Eczema Hearing loss 07/18/2017 DX:Hearing loss; COMMENT: 09/10: seen by Dr. Wolfe, nl hearing Chlamydia 02/28/2018 DX:Chlamydia; CO MMENT: 03/12 + treated 08/12: negative Abdominal pain, bilateral lo wer quadrant 12/09/2016 DX:Abdominal pain, bilateral lower quadrant; COMMENT: 11/08/16: abdominal pain, nausea for a year. Vomitng, hematochezia. Nl KUB, nl pelvic ultrasound. CRP 3.26, ESR 26. Bentyl 10 mg PO QID with some relief 12/05/16: seen by Dr. Valles. Endoscopy/ colonoscopy 12/07/16: endoscopy: esophagitis with no bleeding GE junction and lower third of esophagus. 2 mm non bleeding nodule benign appearing* Acne 09/21/2011 DX:Acne Swelling of left knee joint 10/07/2017 DX:S welling of left knee joint; COMMENT: 10/01/17: left knee swelling. Elevated ESR, crp, nl xray knee, no effusion. 10/07/17 ongoing sx. Will repeat labs in [address] what [address] they are trending. Add lyme titer 11/10: appt with rheumatology at [facility] 01/08/18: Seen by Dr. Benítez. Mild fullness of left suprapatellar region. Xray no obvious effusion. 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 Maternal Grandfather Maternal Grandmother Mother Alive juancharleen bonny 03/14/84 Social History Tobacco Use Types Packs/Day Years Used Date Smoking Tobacco: Never Smokeless Tobacco: Never Tobacco Cessation:Counseling Given: Not Answered Alcohol Use Standard Drinks/Week Comments Yes 2 (1 standard drink = 0.6 oz pur e alcohol) Comments No Sex and Gender Information Value Date Recorded Sex Assigned at Not on file Legal Sex Female 5:05 PM EST Gender Identity Not on file Sexual Orientation Not on file Obstetrics History Last Filed Vital Signs Vital Sign Reading Time Taken Comments Blood Pressure 94/59 12/03/2024 3:12 PM EST Pulse 97 12/03/2024 3:12 PM EST Temperature 36.8 C (98.2 F) 12/03/2024 3:12 PM EST Respiratory Rate 16 12/03/2024 3:12 PM EST Oxygen Saturation - - Inhaled Oxygen Concentration - - Weight 115 kg (254 lb) 12/03/2024 3:12 PM EST Height 155 cm (5' 1.02 ) 12/03/2024 3:12 PM EST Body Mass Index 47.96 12/03/2024 3:12 PM EST Plan of Treatment Upcoming Encounters Date Type Department Care Team (Late st Contact Info) Description 06/02/2025 3:30 PM EDT Office Visit Adult [facility] [address] [place] [phone] Juancarlos Combs PA [address] [place] [address] 12/06/2025 11:00 AM EST Office Visit [facility] [address] [place] [phone] Monae Guido MD [address] [place] [address] Health Maintenance Due Date Last Done Comments Pneumococcal Vaccine: Pediatrics (0 to 5 Years) and At-Risk Patients (6 to 64 Years) (1 of 1 - PPSV23) 2007 07/08/2002, 01/27/2002, 2001, Additional history exists Meningococcal B Vaccine (1 of 2 - Standard) 2017 Hepatitis A Vaccines (1 of 2 - Risk 2-dose series) 2020 Depression Screening 10/17/2021 Social Influencers of Health Screening 10/17/2021 Cervical Cancer Screening: Pap Smear 2022 DTaP,Tdap,and Td Vaccines (7 - Td or Tdap) 12/22/2022 12/22/2012, 09/13/2005, 10/15/2002, Additional history exists Gonorrhea/Chlamydia Screening 02/02/2024 02/01/2023 COVID-19 Vaccine ( - season) 2024 Influenza Vaccine (Season Ended) 2025 08/07/2018, 10/05/2016, 12/23/2013, Additional history exists Cholesterol Screening (Lipid Panel) 12/03/2029 12/03/2024, 02/01/2023 Hepatitis B Vaccines Completed 01/27/2002, 2001, 2001 HIB Vaccines Completed 07/08/2002, 06/25, 01/27/2002, Additional history exists IPV Vaccines Completed 09/13/2005, 09/26, 07/08/2002, Additional history exists MMR Vaccines Completed 09/13/2005, 08/26, 07/08/2002 Varicella Vaccines Completed 01/04/2011, 1 , 07/08/2002 HPV Vaccines Completed 04/14/2015, 11/26, 12/22/2012 Meningococcal ACWY Vaccine Completed 07/18/2017, HIV Screening Completed 12/03/2024 Hepatitis C Screening Completed 12/03/2024 RSV Immunization Patients Under 20 months Aged Out No longer eligible based on patient's age to complete this topic Procedures Procedure Name Priority Date/Time Associated Diagnosis Comments HEPATITIS C ANTIBODY Routine 12/03/2024 4:02 PM EST Routine general medical examination at a health care facility Mild persistent asthma without complication Obesity, Class III, BMI 40-49.9 (morbid obesity) ([facility] V24, [facility] V28) Hydradenitis Poor sleep Routine screening for STI (sexually transmitted infection) HIV 1, 2 ANTIBODY, P24 ANTIGEN WITH REFLEX TO DIFFERENTIATION Routine 12/03/2024 4:02 PM EST Routine general medical examination at a health care facility Mild persistent asthma without complication Obesity, Class III, BMI 40-49.9 (morbid obesity) ([facility] V24, [facility] V28) Hydradenitis Poor sleep Routine screening for STI (sexually transmitted infection) LIPID PANEL WITH REFLEX TO DIRECT LDL Routine 12/03/2024 4:02 PM EST Routine general medical examination at a health care facility Mild persistent asthma without complication Obesity, Class III, BMI 40-49.9 (morbid obesity) ([facility] V24, [facility] V28) HM GONORRHEA/CHLAMYDIA SCRREENING Routine 02/01/2023 from Last 3 Months or Most Recently Relevant to Health Maintenance Results * Hepatitis C antibody (12/03/2024 4:02 PM EST) Hepatitis C Antibody Negative Negative LAB CHEMISTRY METHOD 12/03/2024 7:01 PM EST [facility] Blood Venous blood specimen / Unknown Venipuncture / Unknown 12/03/2024 4:02 PM EST 12/03/2024 4:02 PM EST Monae Guido MD LAB BLOOD ORDERABLES F inal Result Performing Organization Address [facility] de Phone Number [facility] [address] [place] [address], [place] [phone] * HIV 1,2 antibody, p24 antigen with reflex to differentiation (12/03/2024 4:02 PM EST) Pathologist [facility] HIV Combo AB/AG Negative Negative LAB CHEMISTRY METHOD 12/03/2024 7:01 PM EST [facility] Blood Venous blood specimen / Unknown Venipuncture / Unknown 12/03/2024 4:02 PM EST 12/03/2024 4:02 PM EST Narrative [facility] - 12/03/2024 7:01 PM EST This assay is a 4th generation assay allowing for earlier detection of HIV infection by detecting the presence of the HIV-1 p24 antigen as well as the traditional antibodies to HIV type 1 (including group O) and type 2. Use of a 4th generation assay is the current CDC recommendation for HIV screening. Monae Guido MD LAB BLOOD ORDERABLES F inal Result Performing Organization Address [facility] Co de Phone Number [facility] [address] [place] [address], [place] [phone] * Lipid panel with reflex to direct LDL (12/03/2024 4:02 PM EST) Pathologist [facility] Cholesterol 129 0 - 200 mg/dL LAB CHEMISTRY METHOD 12/03/2024 6:23 PM EST [facility] Triglycerides 72 0 - 150 mg/dL LAB CHEMISTRY METHOD 12/03/2024 6:23 PM EST [facility] HDL 41 >=40 mg/dL LAB CHEMISTRY METHOD 12/03/2024 6:23 PM EST [facility] LDL Calculated 74 0 - 100 mg/dL LAB CHEMISTRY METHOD 12/03/2024 6:23 PM EST [facility] VLDL Cholesterol Nadir 14.4 mg/dL LAB CHEMISTRY METHOD 12/03/2024 6:23 PM EST [facility] Non HDL Chol. (LDL+VLDL) 88 <145 mg/dL LAB CHEMISTRY METHOD 12/03/2024 6:23 PM [facility] Chol/HDL Ratio 3.1 0.0 - 4.4 LAB CHEMISTRY METHOD 12/03/2024 6:23 PM [facility] Blood Venous blood specimen / Unknown Venipuncture / Unknown 12/03/2024 4:02 PM EST 12/03/2024 4:02 PM EST Monae Guido MD LAB BLOOD ORDERABLES F inal Result [facility] [address] [place] [address], [place] [phone] * Gonorrhea/Chlamydia Screening (02/01/2023) Gonorrhea/Chla mydia Screening abstracted Historical Provider HEALTH MAINTENANCE Final Result from Last 3 Months or Most Recently Relevant to Health Maintenance Insurance * Guarantor: Cassia Childress Account Type Relation to Patient Date of Phone Billing Address Personal/Family Self 2000 [address] [place] [address] [facility] Care Teams Job Change Crew Member Relationship Specialty Start Date End Date Monae Guido MD [address] [place] [address] [phone] PCP - General 10/02/22
[2025-05-22 14:39] LABS: UPreg QC Valid YES; Urine Pregnancy NEGATIVE (NEGATIVE)
[2025-05-22 14:47] LABS: Appearance Urine Hazy; Color Urine Red; Glucose Urine UA Negative (Negative); Nitrite Urine Negative (Negative); PH 6.5 (5.0-9.0); Specific Gravity - Urine 1.015 (1.005-1.025); Urine Blood Large (3+) (Negative); Urine Ketones Negative (Negative); Urine Protein 100 (2+) mg/dL (Neg-Trace)
[2025-05-22 14:48] LABS: Leukocyte Esterase Urine Moderate (2+) (Negative); UMIC TRIGGER UACC YES
[2025-05-22 14:53] LABS: Bacteria Urine Trace (None Seen); Hyaline Casts Urine 0-2 /LPF (0-2); RBC Urine >20 /HPF (0-2); UACC Culture Trigger YES
[2025-05-22 14:54] LABS: Alanine Aminotransferase 13 U/L (0-31); Alkaline Phosphatase 74 U/L (39-117); Anion Gap 11 (12-20); Aspartate Amino Transferase 26 U/L (5-31); Bilirubin Direct 0.3 mg/dL (0.0-0.5); Bilirubin Total 0.7 mg/dL (0.0-1.0); Blood Urea Nitrogen 7 mg/dL (9-16); Calcium 8.9 mg/dL (8.4-10.2); Carbon Dioxide 24 mmol/L (22-29); Chloride 108 mmol/L (96-108); Estimated Glomerular Filt Rate > 60; Glucose Random 124 mg/dL (60-115); HCG Quantitative < 2 mIU/mL; Potassium 4.1 mmol/L (3.3-5.1); Sodium 139 mmol/L (135-145); Total Protein 7.9 g/dL (6.5-8.0)
[2025-05-22 16:00] VITALS: BP 122/69; PULSE 80; RESP 16; TEMP 36.4; O2SAT 99
--- NOTE | 2025-05-22 17:41 | PC.NURSE ---
pt requests discharge. US not yet resulted. AMANDA Edward notified
--- NOTE | 2025-05-22 18:06 | PC.NURSE ---
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 Provider aware
[2025-05-22 18:07] VITALS: BP 122/69; PULSE 80; RESP 16; TEMP 36.4; O2SAT 99
== END 2025-05-22 18:08 | disposition left against medical advice (07) ==
PROVIDERS: Nurse Practitioner Family; Emergency Provider Emergency Medicine Emergency Medical Services; PCP Family Medicine
DX: N93.9 Abnormal uterine and vaginal bleeding, unspecified (principal); R10.2 Pelvic and perineal pain; Z79.899 Other long term (current) drug therapy
CPT/HCPCS: 36415; 76830; 76856; 80048; 80076; 81001; 81025; 84702; 85025; 87086; 93975; 99284

== ENCOUNTER → 2025-05-22 15:59 | Outpatient (BNV) | payer OTHER, SELFPAY | PROVIDERS: Emergency Provider Emergency Medicine Emergency Medical Services; PCP Family Medicine; Visit Provider Radiology Diagnostic Radiology | DX: R10.32 Left lower quadrant pain (principal) | CPT/HCPCS: 76830; 76856 ==